=== PATIENT | male | born 1950 | race Caucasian/White ===

== ENCOUNTER 2017-03-08 14:58 | Emergency (ER) | payer MEDICARE, OTHER ==
[2017-03-08 15:08] VITALS: BP 175/100
--- NOTE | 2017-03-08 15:17 | ED Physician Documentation ---
PD HPI DYSPNEA - Stated complaint Stated Complaint: WHEEZING,SUMMERS,SORE THROAT - Chief complaint Chief Complaint: Resp - History obtained from History obtained from: Patient - History of Present Illness Timing - onset: Other (Sick for a week with cough productive of green sputum wheezing and shortness of breath but no fevers. He has a sore throat in the morning, he is a chronic runny nose which isn't really any worse than normal. He is a long-standing smoker and he has a history of coronary disease.) Review of Systems Constitutional: denies: Fever, Chills Ears: denies: Loss of hearing, Ear pain Nose: reports: Rhinorrhea / runny nose. denies: Congestion Throat: reports: Sore throat Cardiac: denies: Chest pain / pressure Respiratory: reports: Dyspnea, Cough GI: denies: Abdominal Pain PD PAST MEDICAL HISTORY - Past Medical History Cardiovascular: None Respiratory: CPAP use Neuro: None Endocrine/Autoimmune: None GI: Colon polyps : Kidney stones HEENT: None Psych: None Musculoskeletal: Osteoporosis Derm: None - Past Surgical History Past Surgical History: Yes General: Hiatal hernia repair HEENT: Rhinoplasty - Present Medications Home Medications: Ambulatory Orders Medication Instructions Recorded Confirmed Hydrochlorothiazide [Microzide] 12.5 mg PO DAILY 06/23/13 11/07/14 [id number] CD [Cardizem Cd] 180 mg PO DAILY 06/23/13 11/07/14 Azithromycin [Zithromax] 250 mg PO DAILY #4 tablet 11/07/14 Hydrocodone/Acetaminophen 1 - 2 tab PO Q6H PRN #14 tablet 11/07/14 [Hydrocodon-Acetaminophen 5-325] guaiFENesin/CODEINE [Robitussin AC] 5 - 10 ml PO Q6H PRN #120 ml 11/07/14 Albuterol Sulfate [Proventil Hfa 1 - 2 puffs IH Q4H PRN #1 03/08/17 Inhaler] hfa.aer.ad Doxycycline Hyclate 100 mg PO BID #14 tablet 03/08/17 guaiFENesin/CODEINE [Robitussin AC] 5 - 10 ml PO Q6H PRN #120 ml 03/08/17 predniSONE [Deltasone] 60 mg PO DAILY 5 Days 03/08/17 - Allergies Allergies/Adverse Reactions: Allergies Allergy/AdvReac Type Severity Reaction Status Date / Time losartan AdvReac Unknown Verified 03/08/17 15:07 - Social History Does the pt smoke?: Yes Smoking Status: Current every day smoker Does the pt drink ETOH?: Yes Does the pt have substance abuse?: No PD ED PE NORMAL - Vitals Vital signs reviewed: Yes - General General: Alert and oriented X 3, No acute distress - HEENT HEENT: Ears normal, Other (sstatus post uvulectomy) - Neck Neck: Supple, no meningeal sign, No bony TTP - Cardiac Cardiac: RRR, No murmur - Respiratory Respiratory: No respiratory distress, Other (mils exp wheezes and bibasilar rhonchi, no focal findings, nonloabored.) - Abdomen Abdomen: Non tender - Derm Derm: No rash - Extremities Extremities: No edema - Neuro Neuro: Alert and oriented X 3, Normal speech - Psych Psych: Normal mood, Normal affect Results - Vitals Vitals: Vital Signs - 24 hr 03/08/17 15:01 Temperature 36 C L Heart Rate 85 Respiratory 20 Rate Blood Pressure 175/100 H O2 Saturation 96 Oxygen O2 Source [Without Activity] Room air O2 Source Room air PD MEDICAL DECISION MAKING - ED course ED course: Given the long-standing tobacco abuse will treat this potential COPD exacerbation given the consistent physical findings. Departure - Departure Disposition: 01 Home, Self Care Clinical Impression: Bronchitis Condition: Good Record reviewed to determine appropriate education?: Yes Instructions: ED Bronchitis Asthmatic Prescriptions: predniSONE [Deltasone] 60 mg PO DAILY 5 Days Doxycycline Hyclate 100 mg PO BID #14 tablet Albuterol Sulfate [Proventil Hfa Inhaler] 1 - 2 puffs IH Q4H PRN #1 hfa.aer.ad PRN Reason: Cough guaiFENesin/CODEINE [Robitussin AC] 5 - 10 ml PO Q6H PRN #120 ml PRN Reason: Cough Comments: Your blood pressure was elevated today on check in to the emergency department. This does not mean that you have hypertension, it is a common phenomenon to check into the emergency department and have elevated blood pressure. I recommend that you see your primary care physician within the week to have it rechecked when you're feeling better.
== END 2017-03-08 15:20 | disposition home or self-care (01) ==
LOC: ED 14:58
DX: J40 Bronchitis, not specified as acute or chronic (principal); R03.0 Elevated blood-pressure reading, without diagnosis of hypertension; Z86.010 Personal history of colon polyps; Z87.442 Personal history of urinary calculi; F17.200 Nicotine dependence, unspecified, uncomplicated
CPT/HCPCS: 99282; 99283

== ENCOUNTER 2017-06-03 10:51 | Outpatient (CLI) | payer MEDICARE, OTHER ==
--- NOTE | 2017-06-04 00:29 | XRAY Report ---
EXAM: LEFT KNEE RADIOGRAPHY EXAM DATE: 06/03/2017 11:19 AM. CLINICAL HISTORY: LEFT KNEE PAIN. Crepitus COMPARISON: None. TECHNIQUE: 3 views. FINDINGS: Bones: Normal. No fractures or bone lesions. Joints: Femoral-tibial joint appears within normal limits. Tiny posterior patellar osteophytes as see n with very minimal patellofemoral degenerative joint disease. No subluxation. No knee joint effusion . Soft Tissues: No acute findings seen. Mild arterial calcifications IMPRESSION: No acute findings. Tiny posterior patellar osteophytes as seen with very minimal patellof emoral degenerative joint disease. [facility] Referring Provider Line: [phone] SITE ID: [id number]
--- NOTE | 2017-06-04 11:26 | XRAY Report ---
EXAM: LEFT HIP AND PELVIS RADIOGRAPHY EXAM DATE: 06/03/2017 03:57 PM. HISTORY: LEFT HIP PAIN. COMPARISONS: CT scan from 06/23/2013. TECHNIQUE: 1 view of the pelvis and 1 view of the hip. FINDINGS: Bones: Normal. No fracture or bone lesion. Joints: Mild degenerative changes noted. Soft Tissues: Normal. No soft tissue swelling. IMPRESSION: Mild osteoarthritic changes without acute fracture. [facility] Referring Provider Line: [phone] SITE ID: [id number]
== END 2017-06-03 10:52 | disposition home or self-care (01) ==
LOC: DI.S 10:51
PROVIDERS: ATTEND Family Medicine
DX: M16.12 Unilateral primary osteoarthritis, left hip (principal); M25.762 Osteophyte, left knee

== ENCOUNTER 2018-02-20 15:40 | Emergency (ER) | payer MEDICARE, OTHER ==
--- NOTE | 2018-02-20 17:01 | XRAY Preliminary Report ---
Exam: XR CHEST 2 VIEW X-RAY IMPRESSION: 1. Retrocardiac opacities suggestive of infiltrates or atelectasis. Given the symptoms, fever and inf iltrates. 2. No effusions or pneumothorax. [facility] SITE ID: [id number]
--- NOTE | 2018-02-20 17:06 | XRAY Report ---
EXAM: CHEST RADIOGRAPHY EXAM DATE: 02/20/2018 04:42 PM. CLINICAL HISTORY: Cough, fever. COMPARISON: 11/07/2014. TECHNIQUE: 2 views. FINDINGS: Lungs/Pleura: Patchy left lower lobe opacities best seen on the frontal radiograph. No large effusion s or pneumothorax. Mediastinum: Stable cardiac silhouette. Other: Diffuse degenerative disk disease throughout the thoracic spine. Mild anterior wedging in the mid thoracic levels consistent with a chronic compression fracture. IMPRESSION: 1. Retrocardiac opacities suggestive of infiltrates or atelectasis. Given the symptoms, favor infiltr ates. 2. No effusions or pneumothorax. [facility] Referring Provider Line: [phone] SITE ID: [id number]
[2018-02-20] MEDS ORDERED: ALBUTEROL NEB 2.5 MG/3 ML INH STA (17:18)
--- NOTE | 2018-02-20 17:18 | ED Physician Documentation ---
PD HPI URI - Stated complaint Stated Complaint: COUGH,CONGESTION - Chief complaint Chief Complaint: Heent - History obtained from History obtained from: Patient - History of Present Illness Timing - onset: How many weeks ago (2) Timing duration: Weeks (2) Timing details: Gradual onset Pain level max: 0 Pain level now: 0 Associated symptoms: Nasal congestion, Rhinorrhea, Dry cough. No: Fever, Chills , Sore throat, Hemoptysis, Chest pain, Dyspnea Contributing factors: Sick contact Improves by: Rest Worsened by: Activity, Breathing Similar symptoms before: Diagnosis (states has had bronchitis before) Recently seen: Not recently seen Review of Systems Ten Systems: 10 systems reviewed and negative Constitutional: denies: Fever, Chills Ears: denies: Ear pain Nose: denies: Rhinorrhea / runny nose, Congestion Throat: denies: Sore throat Cardiac: denies: Chest pain / pressure Respiratory: reports: Dyspnea, Cough GI: denies: Abdominal Pain, Nausea, Vomiting, Diarrhea, Hematemesis : denies: Dysuria Skin: denies: Rash Musculoskeletal: denies: Neck pain, Back pain Neurologic: denies: Headache PD PAST MEDICAL HISTORY - Past Medical History Cardiovascular: None Respiratory: CPAP use Neuro: None Endocrine/Autoimmune: None GI: Colon polyps : Kidney stones HEENT: None Psych: None Musculoskeletal: Osteoporosis Derm: None - Past Surgical History Past Surgical History: Yes General: Hiatal hernia repair HEENT: Rhinoplasty - Present Medications Home Medications: Ambulatory Orders Medication Instructions Recorded Confirmed Hydrochlorothiazide [Microzide] 12.5 mg PO DAILY 06/23/13 11/07/14 diltiaZEM CD [Cardizem Cd] 180 mg PO DAILY 06/23/13 11/07/14 Azithromycin [Zithromax] 250 mg PO DAILY #4 tablet 11/07/14 Hydrocodone/Acetaminophen 1 - 2 tab PO Q6H PRN #14 tablet 11/07/14 [Hydrocodon-Acetaminophen 5-325] guaiFENesin/CODEINE [Robitussin AC] 5 - 10 ml PO Q6H PRN #120 ml 11/07/14 Albuterol Sulfate [Proventil Hfa 1 - 2 puffs IH Q4H PRN #1 03/08/17 Inhaler] hfa.aer.ad Doxycycline Hyclate 100 mg PO BID #14 tablet 03/08/17 guaiFENesin/CODEINE [Robitussin AC] 5 - 10 ml PO Q6H PRN #120 ml 03/08/17 predniSONE [Deltasone] 60 mg PO DAILY 5 Days tablet 03/08/17 Albuterol Sulf [Ventolin Hfa 1 - 2 puffs INH Q4HR PRN #1 inhaler 02/20/18 Inhaler] Allopurinol 02/20/18 Aspirin 02/20/18 Azithromycin [Zithromax] 0 mg PO DAILY #6 tablet 02/20/18 Clopidogrel [Plavix] 02/20/18 Gabapentin 02/20/18 Nitroglycerin [Nitrostat] 02/20/18 Pantoprazole [Protonix] 02/20/18 Sod/Pot/K Cit/Sod Cit/Cit Acid 02/20/18 [Potass Cit-Sod Cit-Citric Soln] Tamsulosin [Flomax] 02/20/18 hydroCHLOROthiazide 02/20/18 [Hydrochlorothiazide] traMADol [Ultram] 02/20/18 - Allergies Allergies/Adverse Reactions: Allergies Allergy/AdvReac Type Severity Reaction Status Date / Time losartan AdvReac Unknown Verified 03/08/17 15:07 - Social History Does the pt smoke?: Yes Smoking Status: Current every day smoker Does the pt drink ETOH?: Yes Does the pt have substance abuse?: No PD ED PE NORMAL - Vitals Vital signs reviewed: Yes - General General: Alert and oriented X 3 - HEENT HEENT: Moist mucous membranes - Neck Neck: Supple, no meningeal sign - Cardiac Cardiac: RRR, Strong equal pulses - Respiratory Respiratory: No respiratory distress, Other (wheezing B, dimished BS bilaterally.) - Abdomen Abdomen: Soft, Non tender - Derm Derm: Warm and dry, No rash - Neuro Neuro: Alert and oriented X 3 - Psych Psych: Normal mood, Normal affect Results - Vitals Vitals: Vital Signs - 24 hr 02/20/18 02/20/18 02/20/18 15:51 17:38 17:49 Temperature 37.1 C 36.6 C Heart Rate 90 73 70 Respiratory 18 18 18 Rate Blood Pressure 170/109 H 170/98 H O2 Saturation 98 96 Oxygen O2 Source [] Room air O2 Source Room air - Rads (name of study) cxr Radiology: Prelim report reviewed, EMP read contemporaneously, See rad report ( Retrocardiac opacity suggestive of infiltrates or atelectasis. Given symptoms favor infiltrates. No effusions or pneumothorax.) PD MEDICAL DECISION MAKING - ED course Complexity details: reviewed results, re-evaluated patient, considered differential, d/w patient ED course: Patient is a 67-year-old male who presents to the emergency department with pneumonia on chest x-ray. Feels better after albuterol treatment and will place on inhaler for home. We will also prescribe antibiotics. He is well- appearing, nontoxic. No hypoxia or respiratory distress. Patient counseled regarding signs and symptoms for which I believe and urgent re-evaluation would be necessary. Patient with good understanding of and agreement to plan and is comfortable going home at this time This document was made in part using voice recognition software. While efforts are made to proofread this document, sound alike and grammatical errors may occur. Departure - Departure Disposition: 01 Home, Self Care Clinical Impression: Pneumonia Qualifiers: Pneumonia type: due to unspecified organism Laterality: bilateral Lung location : unspecified part of lung Qualified Code(s): J18.9 - Pneumonia, unspecified organism Condition: Good Instructions: ED Pneumonia Adult Follow-Up: Sean Blankenship MD [Primary Care Provider] - Within 1 week Prescriptions: Albuterol Sulf [Ventolin Hfa Inhaler] 1 - 2 puffs INH Q4HR PRN #1 inhaler PRN Reason: Shortness Of Air/Wheezing Azithromycin [Zithromax] 0 mg PO DAILY #6 tablet Comments: Take all antibiotics until gone. Return if you worsen. This should improve over the next few days. Discharge Date/Time: 02/20/18 18:03
[2018-02-20 17:50] VITALS: BP 170/98
== END 2018-02-20 18:03 | disposition home or self-care (01) ==
LOC: ED 15:40
DX: J18.9 Pneumonia, unspecified organism (principal); F17.200 Nicotine dependence, unspecified, uncomplicated
CPT/HCPCS: 71046; 94640; 94664; 99283; 99284

== ENCOUNTER 2018-05-01 18:57 | Emergency (ER) | payer MEDICARE, OTHER ==
[2018-05-01 19:43] LABS: BASOPHILS # (AUTO) 0.1 10^3/uL (0.0-0.1); BASOPHILS % (AUTO) 0.9 %; EOSINOPHILS # (AUTO) 0.2 10^3/uL (0.0-0.7); EOSINOPHILS % (AUTO) 2.2 %; HGB - HEMOGLOBIN 17.4 g/dL (14.0-18.0); LYMPHOCYTES # (AUTO) 1.9 10^3/uL (1.5-3.5); LYMPHOCYTES % (AUTO) 24.1 %; MEAN CORPUSCULAR HEMOGLOBIN 30.4 pg (27.0-31.0); MEAN CORPUSCULAR HGB CONC 33.1 g/dL (32.0-36.0); MEAN CORPUSCULAR VOLUME 91.9 fL (80.0-94.0); MONOCYTES # (AUTO) 0.6 10^3/uL (0.0-1.0); MONOCYTES % (AUTO) 7.9 %; NEUTROPHILS # (AUTO) 5.2 10^3/uL (1.5-6.6); NEUTROPHILS % (AUTO) 64.9 %; PLT - PLATELET COUNT 199 10^3/uL (130-450); RED BLOOD COUNT 5.72 10^6/uL (4.70-6.10); RED CELL DISTRIBUTION WIDTH 14.4 % (12.0-15.0)
[2018-05-01] MEDS ORDERED: SODIUM CHLORIDE 0.9% 1,000 ML IV ONE (19:49)
[2018-05-01] MEDS ORDERED: MORPHINE 10 MG/ML VIAL IVP STA (19:49)
[2018-05-01] MEDS ORDERED: diphenhydrAMINE INJ 50 MG/ML VIAL IVP STA (19:49)
[2018-05-01] MEDS ORDERED: METOCLOPRAMIDE 10 MG/2 ML VIAL IVP STA (19:49)
[2018-05-01 19:56] LABS: ALBUMIN 4.3 g/dL (3.2-5.5); ALBUMIN/GLOBULIN RATIO 1.2 (1.0-2.2); BILIRUBIN,TOTAL 0.8 mg/dL (0.2-1.0); CALCIUM 9.9 mg/dL (8.5-10.3); CREATININE 0.9 mg/dL (0.6-1.2); TOTAL PROTEIN 7.9 g/dL (6.7-8.2)
--- NOTE | 2018-05-01 20:17 | XRAY Report ---
Procedure Date: 05/01/2018 Accession Number: [id number] / [id number] Procedure: XR - Chest 2 View X-Ray CPT Code: 30153 FULL RESULT: EXAM: CHEST RADIOGRAPHY EXAM DATE: 05/01/2018 07:58 PM. CLINICAL HISTORY: Shortness of breath. COMPARISON: Chest radiograph 02/20/2018 and 11/07/2014. TECHNIQUE: 2 views. FINDINGS: Lungs/Pleura: There are streaky left basilar opacities, similar to prior radiographs, likely atelectasis or scarring. No pleural effusion or pneumothorax. Lungs are otherwise clear. Pulmonary vasculature is within normal limits. Mediastinum: Heart and mediastinal contours are unchanged. Other: Degenerative disk disease again noted throughout the thoracic spine, [id number], with multilevel anterior wedging causing accentuated kyphosis as before. IMPRESSION: No acute cardiopulmonary abnormality with retrocardiac opacity stable compared to prior exams likely representing scarring or atelectasis. [facility]
--- NOTE | 2018-05-01 21:39 | ED Physician Documentation ---
History of Present Illness - Stated complaint Stated Complaint: SOA/HD PX - Chief complaint Chief Complaint: Neuro - History obtained from History obtained from: Patient, Family - History of Present Illness Timing: How many days ago (3) - Additonal information Additional information: Patient is a 67 year old male presenting to the emergency department for headache and intermittent shortness of breath. Patient states that for the last three days he has had a dull frontal headache. it is made worse by light. patient also reports shortness of breath. he states that it mainly is when he lies down. Patient denies any exertional component and denies any chest pain. Review of Systems Constitutional: denies: Fever, Chills Eyes: reports: Reviewed and negative Ears: reports: Reviewed and negative Nose: reports: Rhinorrhea / runny nose, Congestion Throat: reports: Reviewed and negative Cardiac: denies: Chest pain / pressure, Palpitations, Calf pain Respiratory: reports: Dyspnea. denies: Cough, Hemoptysis, Wheezing GI: denies: Nausea, Vomiting Neurologic: reports: Headache. denies: Difficulty speaking, Syncope, Altered mental status, Head injury, LOC Immunocompromised: denies: Immunocompromised PD PAST MEDICAL HISTORY - Past Medical History Cardiovascular: None Respiratory: CPAP use Endocrine/Autoimmune: None GI: Colon polyps : Kidney stones HEENT: None Psych: None Musculoskeletal: Osteoporosis Derm: None - Past Surgical History Past Surgical History: Yes General: Hiatal hernia repair HEENT: Rhinoplasty - Present Medications Home Medications: Ambulatory Orders Medication Instructions Recorded Confirmed Hydrochlorothiazide [Microzide] 12.5 mg PO DAILY 06/23/13 11/07/14 diltiaZEM CD [Cardizem Cd] 180 mg PO DAILY 06/23/13 11/07/14 Azithromycin [Zithromax] 250 mg PO DAILY #4 tablet 11/07/14 Hydrocodone/Acetaminophen 1 - 2 tab PO Q6H PRN #14 tablet 11/07/14 [Hydrocodon-Acetaminophen 5-325] guaiFENesin/CODEINE [Robitussin AC] 5 - 10 ml PO Q6H PRN #120 ml 11/07/14 Albuterol Sulfate [Proventil Hfa 1 - 2 puffs IH Q4H PRN #1 03/08/17 Inhaler] hfa.aer.ad Doxycycline Hyclate 100 mg PO BID #14 tablet 03/08/17 guaiFENesin/CODEINE [Robitussin AC] 5 - 10 ml PO Q6H PRN #120 ml 03/08/17 predniSONE [Deltasone] 60 mg PO DAILY 5 Days tablet 03/08/17 Albuterol Sulf [Ventolin Hfa 1 - 2 puffs INH Q4HR PRN #1 inhaler 02/20/18 Inhaler] Allopurinol 02/20/18 Aspirin 02/20/18 Azithromycin [Zithromax] 0 mg PO DAILY #6 tablet 02/20/18 Clopidogrel [Plavix] 02/20/18 Gabapentin 02/20/18 Nitroglycerin [Nitrostat] 02/20/18 Pantoprazole [Protonix] 02/20/18 Sod/Pot/K Cit/Sod Cit/Cit Acid 02/20/18 [Potass Cit-Sod Cit-Citric Soln] Tamsulosin [Flomax] 02/20/18 hydroCHLOROthiazide 02/20/18 [Hydrochlorothiazide] traMADol [Ultram] 02/20/18 - Allergies Allergies/Adverse Reactions: Allergies Allergy/AdvReac Type Severity Reaction Status Date / Time losartan AdvReac Unknown Verified 05/01/18 19:06 - Social History Does the pt smoke?: Yes Smoking Status: Current every day smoker Does the pt drink ETOH?: Yes Does the pt have substance abuse?: No PD ED PE NORMAL - Vitals Vital signs reviewed: Yes - General General: Alert and oriented X 3 - HEENT HEENT: Atraumatic - Neck Neck: No JVD - Cardiac Cardiac: RRR, No murmur - Respiratory Respiratory: Clear bilaterally - Abdomen Abdomen: Soft, Non tender, Non distended - Derm Derm: Normal color, Warm and dry, No rash - Extremities Extremities: No edema, No calf tenderness / cord - Neuro Neuro: Alert and oriented X 3, No motor deficit, Normal speech Eye Opening: Spontaneous Results - Vitals Vitals: Vital Signs - 24 hr 05/01/18 05/01/18 05/01/18 19:02 20:33 22:03 Temperature 36 C L Heart Rate 75 64 74 Respiratory 18 16 18 Rate Blood Pressure 154/117 H 211/106 H 213/103 H O2 Saturation 99 98 97 Oxygen O2 Source [Without Activity] Room air O2 Source Room air - EKG (time done) 1914 Rate: Rate (enter#) (67) [place]: Normal Ischemia: Q waves - Labs Labs: Laboratory Tests 05/01/18 05/01/18 05/01/18 19:40 19:40 19:40 WBC 8.0 RBC 5.72 Hgb 17.4 Hct 52.6 H MCV 91.9 MCH 30.4 MCHC 33.1 RDW 14.4 Plt Count 199 MPV 9.0 Neut # (Auto) 5.2 Lymph # (Auto) 1.9 [place] # (Auto) 0.6 Eos # (Auto) 0.2 Baso # (Auto) 0.1 Absolute Nucleated RBC 0.01 Nucleated RBC % 0.1 Sodium 134 L Potassium 3.8 Chloride 96 L Carbon Dioxide 31 Anion Gap 7.0 BUN 14 Creatinine 0.9 Estimated GFR (MDRD) 84 L Glucose 185 H Calcium 9.9 Total Bilirubin 0.8 AST 30 ALT 46 Alkaline Phosphatase 111 Troponin I < 0.04 B-Natriuretic Peptide Total Protein 7.9 Albumin 4.3 Globulin 3.6 Albumin/Globulin Ratio 1.2 Lipase 35 05/01/18 19:40 WBC RBC Hgb Hct MCV MCH MCHC RDW Plt Count MPV Neut # (Auto) Lymph # (Auto) [place] # (Auto) Eos # (Auto) Baso # (Auto) Absolute Nucleated RBC Nucleated RBC % Sodium Potassium Chloride Carbon Dioxide Anion Gap BUN Creatinine Estimated GFR (MDRD) Glucose Calcium Total Bilirubin AST ALT Alkaline Phosphatase Troponin I B-Natriuretic Peptide 117 H Total Protein Albumin Globulin Albumin/Globulin Ratio Lipase - Rads (name of study) chest x-ray Radiology: Final report received (scarring, no acute changes) PD MEDICAL DECISION MAKING - ED course Complexity details: reviewed old records, reviewed results, re-evaluated patient , considered differential, d/w patient ED course: Patient was seen and examined at bedside. IV access was gained and labs were drawn. ekg was performed and showed q waves in the inferior leads but no acute ischemic changes. chest x-ray was ordered. Patient was treated with a fluid bolus, reglan, benadryl and morphine. Patient's blood work was relatively unremarkable and there was no sign of fluid overload. patient's headache resolved. patient required no further work up and was stable for discharge with outpatient follow up. - Sepsis Event Vital Signs: Vital Signs - 24 hr 05/01/18 05/01/18 05/01/18 19:02 20:33 22:03 Temperature 36 C L Heart Rate 75 64 74 Respiratory 18 16 18 Rate Blood Pressure 154/117 H 211/106 H 213/103 H O2 Saturation 99 98 97 Oxygen O2 Source [Without Activity] Room air O2 Source Room air Departure - Departure Disposition: 01 Home, Self Care Clinical Impression: Headache Condition: Good Instructions: ED Headache Migraine Follow-Up: Sean Blankenship MD [Primary Care Provider] - Tomorrow Comments: Your diagnostics today were within normal limits. there is are no acute abnormalities. that being said it is important that you contact your doctor tomorrow to schedule a follow up ultrasound (echocardiogram). You should return to the emergency department at any time for new, worsening or uncontrollable symptoms.
[2018-05-01 22:05] VITALS: BP 213/103
== END 2018-05-01 22:04 | disposition home or self-care (01) ==
LOC: ED 18:57
DX: R51 Headache (principal)
CPT/HCPCS: 36415; 71046; 80053; 83690; 83880; 84484; 85025; 93005; 96361; 96374; 96375; 99283; 99284; J1200; J2765

== ENCOUNTER 2018-05-03 07:17 | Emergency (ER) | payer MEDICARE, OTHER ==
--- NOTE | 2018-05-03 07:45 | ED Physician Documentation ---
PD HPI HEADACHE - Stated complaint Stated Complaint: NAUSEA/SOA/HEAD PAIN - Chief complaint Chief Complaint: General - History obtained from History obtained from: Patient - History of Present Illness Timing - onset: How many days ago (5) Timing - onset during: Rest Timing - duration: Days (5) Timing - details: Gradual onset, Still present Worst headache ever?: No: Worst headache ever? Location: Right Quality: Throbbing Associated symptoms: Nausea, Vomiting, Other (shortness of breath). No: Fever, Stiff neck Improved by: Rest, Dark room, Quiet, Meds Worsened by: Light, Noise, Moving Contributing factors: Anticoagulated (on plavix) Similar symptoms before: No diagnosis Recently seen: Emergency Dept - Additional information Additional information: 67 y/o male with a history of htn has developed a headache & cough. He is noted to be hypertensive today and he was in the ED 2 nights ago with this headache and improved with migraine treatment but the relief was short lived. He does have a history of sinus disease. Review of Systems Constitutional: denies: Fever, Chills Eyes: denies: Decreased vision Ears: denies: Ear pain Nose: reports: Rhinorrhea / runny nose, Congestion, Sinus pressure / pain Throat: denies: Sore throat Cardiac: denies: Chest pain / pressure, Palpitations Respiratory: reports: Cough. denies: Dyspnea GI: reports: Nausea, Vomiting. denies: Abdominal Pain, Constipation, Diarrhea : denies: Dysuria, Frequency PD PAST MEDICAL HISTORY - Past Medical History Cardiovascular: Hypertension, [place] Respiratory: COPD, Pneumonia, CPAP use Neuro: CVA Endocrine/Autoimmune: None GI: Colon polyps : Kidney stones HEENT: None Psych: None Musculoskeletal: Osteoporosis Derm: None - Past Surgical History Past Surgical History: Yes General: Hiatal hernia repair HEENT: Rhinoplasty - Present Medications Home Medications: Ambulatory Orders Medication Instructions Recorded Confirmed Hydrochlorothiazide [Microzide] 12.5 mg PO DAILY 06/23/13 11/07/14 diltiaZEM CD [Cardizem Cd] 180 mg PO DAILY 06/23/13 11/07/14 Hydrocodone/Acetaminophen 1 - 2 tab PO Q6H PRN #14 tablet 11/07/14 [Hydrocodon-Acetaminophen 5-325] guaiFENesin/CODEINE [Robitussin AC] 5 - 10 ml PO Q6H PRN #120 ml 11/07/14 guaiFENesin/CODEINE [Robitussin AC] 5 - 10 ml PO Q6H PRN #120 ml 03/08/17 predniSONE [Deltasone] 60 mg PO DAILY 5 Days tablet 03/08/17 Allopurinol 02/20/18 Aspirin 02/20/18 Clopidogrel [Plavix] 02/20/18 Gabapentin 02/20/18 Nitroglycerin [Nitrostat] 02/20/18 Pantoprazole [Protonix] 02/20/18 Sod/Pot/K Cit/Sod Cit/Cit Acid 02/20/18 [Potass Cit-Sod Cit-Citric Soln] Tamsulosin [Flomax] 02/20/18 hydroCHLOROthiazide 02/20/18 [Hydrochlorothiazide] traMADol [Ultram] 02/20/18 Amox/Clav 875/125 [Augmentin] 1 each PO Q12H #20 tablet 05/03/18 - Allergies Allergies/Adverse Reactions: Allergies Allergy/AdvReac Type Severity Reaction Status Date / Time losartan AdvReac Unknown Verified 05/03/18 07:38 - Social History Does the pt smoke?: Yes Smoking Status: Current every day smoker Does the pt drink ETOH?: Yes Does the pt have substance abuse?: No PD ED PE NORMAL - Vitals Vital signs reviewed: Yes (hypertension marked) - General General: Alert and oriented X 3, Well developed/nourished - HEENT HEENT: Atraumatic, PERRL, EOMI, Other (bothTM's are inflamed along the umbo with the left more involved than the right. ) - Neck Neck: Supple, no meningeal sign, No bony TTP - Cardiac Cardiac: RRR, No murmur - Respiratory Respiratory: No respiratory distress, Clear bilaterally - Abdomen Abdomen: Soft, Non tender - Back Back: No CVA TTP, No spinal TTP - Derm Derm: Normal color, Warm and dry, No rash - Extremities Extremities: No deformity, No edema - Neuro Neuro: Alert and oriented X 3, No motor deficit, No sensory deficit, Normal speech Eye Opening: Spontaneous Motor: Obeys Commands Verbal: Oriented GCS Score: 15 - Psych Psych: Normal mood, Normal affect Results - Vitals Vitals: Vital Signs - 24 hr 05/03/18 05/03/18 05/03/18 07:34 07:44 08:31 Temperature 36.1 C L Heart Rate 95 93 93 Respiratory 15 20 18 Rate Blood Pressure 177/138 H 174/89 H 156/111 H O2 Saturation 98 98 97 05/03/18 05/03/18 05/03/18 09:14 11:41 13:19 Temperature Heart Rate 82 86 87 Respiratory 14 20 19 Rate Blood Pressure 185/95 H 165/125 H 194/83 H O2 Saturation 95 95 96 Oxygen O2 Source [] Room air O2 Source Nasal cannula - EKG (time done) 0759 Rate: Rate (enter#) (92) Rhythm: LAE, Other (ventricular trigeminy) Intervals: Prolonged QT QRS: Poor R wave progression Ischemia: Q waves Compare to prior EKG: Changed from prior EKG (SPT 05-01-18 rate has increased, QT interval has prolonged, trigeminy has developed. ) Computer interpretation: Agree with computer - Labs Labs: Laboratory Tests 05/03/18 05/03/18 05/03/18 07:55 07:55 07:55 WBC 15.7 H RBC 6.31 H Hgb 19.1 H Hct 56.9 H MCV 90.2 MCH 30.3 MCHC 33.6 RDW 14.2 Plt Count 219 MPV 9.0 Neut # (Auto) 12.2 H Lymph # (Auto) 2.0 [place] # (Auto) 1.4 H Eos # (Auto) 0.0 Baso # (Auto) 0.1 Absolute Nucleated RBC 0.01 Nucleated RBC % 0.0 Sodium 134 L Potassium 3.9 Chloride 94 L Carbon Dioxide 24 Anion Gap 16.0 H BUN 17 Creatinine 1.3 H Estimated GFR (MDRD) 55 L Glucose 218 H Calcium 10.9 H Magnesium Total Bilirubin 1.3 H AST 30 ALT 41 Alkaline Phosphatase 116 Troponin I 0.05 B-Natriuretic Peptide Total Protein 8.6 H Albumin 4.3 Globulin 4.3 H Albumin/Globulin Ratio 1.0 Lipase 32 05/03/18 05/03/18 05/03/18 07:55 07:55 11:31 WBC RBC Hgb Hct MCV MCH MCHC RDW Plt Count MPV Neut # (Auto) Lymph # (Auto) [place] # (Auto) Eos # (Auto) Baso # (Auto) Absolute Nucleated RBC Nucleated RBC % Sodium Potassium Chloride Carbon Dioxide Anion Gap BUN Creatinine Estimated GFR (MDRD) Glucose Calcium Magnesium 1.7 Total Bilirubin AST ALT Alkaline Phosphatase Troponin I 0.05 B-Natriuretic Peptide 241 H Total Protein Albumin Globulin Albumin/Globulin Ratio Lipase - Rads (name of study) CT head without Radiology: Prelim report reviewed (Impression: 1. Generalized age-related cortical atrophic changes without evidence of acute intracranial abnormality. 2. Moderate paranasal sinus disease, although the severity has decreased compared to 2014. However no significant change from prior.), EMP read indepedently, See rad report 2 veiw chest Radiology: Prelim report reviewed (Impression: Normal two-view chest radiography.), EMP read indepedently, See rad report Procedures - IVC sono (time) 0740 Bedside IVC sono: IVC measures (cm) (1.34), IVC collapsed c insp (cm) (complete) , Dehydration (est 1liter deficit) PD MEDICAL DECISION MAKING - ED course Complexity details: reviewed old records, reviewed results, re-evaluated patient , considered differential, d/w patient ED course: 67-year-old male with a history of COPD and hypertension has presented to the emergency department with headache and shortness of breath with acknowledged marked hypertension with diastolic of 138. He has 9 out of 10 pain for a headache and he has had symptoms for 5 days. Here in the emergency department an IV is established he is administered saline, dexamethasone, Compazine, Benadryl, Toradol, and Rocephin IV. On examination today he does have otitis bilaterally he does not have specific symptoms related to that. His lungs do not sound like he has wheezes. He appears to be moving air easily. He has no signs of failure. On interrogation the inferior vena cava he does appear to have about 1 L deficit. He is treated for migraine headache and otitis and his head is scanned. He has improvement and then resolution of his headache. His blood pressure is concerning and a replacement cuff shows improved but still elevated values and he is given clonidine 0.1mg PO - Sepsis Event Vital Signs: Vital Signs - 24 hr 05/03/18 05/03/18 05/03/18 07:34 07:44 08:31 Temperature 36.1 C L Heart Rate 95 93 93 Respiratory 15 20 18 Rate Blood Pressure 177/138 H 174/89 H 156/111 H O2 Saturation 98 98 97 05/03/18 05/03/18 05/03/18 09:14 11:41 13:19 Temperature Heart Rate 82 86 87 Respiratory 14 20 19 Rate Blood Pressure 185/95 H 165/125 H 194/83 H O2 Saturation 95 95 96 Oxygen O2 Source [] Room air O2 Source Nasal cannula Departure - Departure Disposition: 01 Home, Self Care Clinical Impression: Headache Qualifiers: Headache type: tension-type Headache chronicity pattern: acute headache Intractability: not intractable Qualified Code(s): G44.209 - Tension-type headache, unspecified, not intractable Otitis media Qualifiers: Otitis media type: suppurative Chronicity: acute Laterality: bilateral Recurrence: not specified as recurrent Spontaneous tympanic membrane rupture: without spontaneous rupture Qualified Code(s): H66.003 - Acute suppurative otitis media without spontaneous rupture of ear drum, bilateral Acute frontal sinusitis Qualifiers: Recurrence: non-recurrent Qualified Code(s): J01.10 - Acute frontal sinusitis, unspecified Hypertension Qualifiers: Hypertension type: essential hypertension Qualified Code(s): I10 - Essential ( primary) hypertension Instructions: ED Headache Tension, ED Otitis Media Acute Adult, ED Sinusitis Abx Tx Follow-Up: Sean Blankenship MD [Primary Care Provider] - Prescriptions: Amox/Clav 875/125 [Augmentin] 1 each PO Q12H #20 tablet Discharge Date/Time: 05/03/18 13:57
[2018-05-03] MEDS ORDERED: KETOROLAC 60 MG/2 ML VIAL IVP STA (07:52)
[2018-05-03] MEDS ORDERED: diphenhydrAMINE INJ 50 MG/ML VIAL IVP STA (07:52)
[2018-05-03] MEDS ORDERED: DEXAMETHASONE 10 MG/ML VIAL IV STA (07:52)
[2018-05-03] MEDS ORDERED: SODIUM CHLORIDE 0.9% 1,000 ML IV ONE (07:52)
[2018-05-03] MEDS ORDERED: cefTRIAXone 1 GM in SODIUM CHLORIDE 0.9% MINIBAG 100 ML IV STA (07:52)
[2018-05-03] MEDS ORDERED: PROCHLORPERAZINE 10 MG/2 ML VIAL IVP STA (07:53)
[2018-05-03 08:02] LABS: BASOPHILS # (AUTO) 0.1 10^3/uL (0.0-0.1); BASOPHILS % (AUTO) 0.8 %; EOSINOPHILS % (AUTO) 0.2 %; HGB - HEMOGLOBIN 19.1 g/dL (14.0-18.0); LYMPHOCYTES % (AUTO) 12.8 %; MEAN CORPUSCULAR HEMOGLOBIN 30.3 pg (27.0-31.0); MEAN CORPUSCULAR HGB CONC 33.6 g/dL (32.0-36.0); MEAN CORPUSCULAR VOLUME 90.2 fL (80.0-94.0); MONOCYTES # (AUTO) 1.4 10^3/uL (0.0-1.0); MONOCYTES % (AUTO) 8.6 %; NEUTROPHILS # (AUTO) 12.2 10^3/uL (1.5-6.6); NEUTROPHILS % (AUTO) 77.6 %; PLT - PLATELET COUNT 219 10^3/uL (130-450); RED BLOOD COUNT 6.31 10^6/uL (4.70-6.10); RED CELL DISTRIBUTION WIDTH 14.2 % (12.0-15.0); WHITE BLOOD COUNT 15.7 x10^3/uL (4.8-10.8)
[2018-05-03 08:17] LABS: ALBUMIN 4.3 g/dL (3.2-5.5); BILIRUBIN,TOTAL 1.3 mg/dL (0.2-1.0); CALCIUM 10.9 mg/dL (8.5-10.3); CREATININE 1.3 mg/dL (0.6-1.2); TOTAL PROTEIN 8.6 g/dL (6.7-8.2)
--- NOTE | 2018-05-03 08:40 | CT Report ---
Procedure Date: 05/03/2018 Accession Number: [id number] / [id number] Procedure: CT - Head W/O CPT Code: FULL RESULT: EXAM: CT HEAD EXAM DATE: 05/03/2018 08:23 AM. CLINICAL HISTORY: Right sided headache. COMPARISON: HEAD W/O 01/29/2014. TECHNIQUE: Multiaxial CT images were obtained from the foramen magnum to the vertex. Reformats: Coronal. IV contrast: None. In accordance with CT protocol optimization, one or more of the following dose reduction techniques were utilized for this exam: automated exposure control, adjustment of mA and/or KV based on patient size, or use of iterative reconstructive technique. FINDINGS: Parenchyma: No intraparenchymal hemorrhage. No evidence of mass, midline shift, or CT findings of acute infarction. Rebollar-white differentiation is distinct. Diffuse chronic microangiopathic white matter changes are evident. Extraaxial Spaces: Normal for age. No subdural or epidural collections identified. Ventricles: The ventricles and cortical sulci are enlarged, consistent with age-related tissue loss. Sinuses and orbits: Improved aeration of the paranasal sinuses compared to prior, however there is persistent complete opacification of the left frontal sinus, and partial opacification of the anterior ethmoid sinuses and right maxillary sinus. No air-fluid levels demonstrated. The mastoid air cells are clear. Bones: No evidence of fracture or calvarial defect. Other: None. IMPRESSION: 1. Generalized age-related cortical atrophic changes without evidence of acute intracranial abnormality. 2. Moderate paranasal sinus disease, though the severity has decreased compared to 2013. Otherwise, no significant change from prior. [facility]
[2018-05-03] MEDS ORDERED: MAGNESIUM SULFATE 2 GRAM 2 GM/50 ML BAG IV ONE (08:51)
--- NOTE | 2018-05-03 09:09 | XRAY Report ---
Procedure Date: 05/03/2018 Accession Number: [id number] / [id number] Procedure: XR - Chest 2 View X-Ray CPT Code: 61216 FULL RESULT: EXAM: CHEST RADIOGRAPHY EXAM DATE: 05/03/2018 08:30 AM. CLINICAL HISTORY: Shortness of breath. COMPARISON: 05/01/18. TECHNIQUE: 2 views. FINDINGS: Lungs/Pleura: No focal opacities evident. Previous minor opacification of the retrocardiac region is not well seen on current study and likely represents resolved atelectasis. No pleural effusion. No pneumothorax. Normal volumes. Mediastinum: Heart and mediastinal contours are unremarkable. Other: None. IMPRESSION: Normal 2-view chest radiography. RAD[facility]
[2018-05-03] MEDS ORDERED: cloNIDine 0.1 MG TABLET PO STA (13:10)
[2018-05-03 13:21] VITALS: BP 194/83
== END 2018-05-03 13:57 | disposition home or self-care (01) ==
LOC: ED 07:17
DX: G44.209 Tension-type headache, unspecified, not intractable (principal); H66.003 Acute suppurative otitis media without spontaneous rupture of ear drum, bilateral; J01.10 Acute frontal sinusitis, unspecified; I10 Essential (primary) hypertension; J44.9 Chronic obstructive pulmonary disease, unspecified
CPT/HCPCS: 36415; 70450; 71046; 80053; 83690; 83735; 83880; 84484; 85025; 93005; 96365; 96367; 96375; 99283; 99284; A9270; J1200

== ENCOUNTER 2018-07-11 18:00 | Outpatient (CLI) | payer MEDICARE, OTHER | END 2018-07-11 18:01 | disposition critical access hospital (66) | LOC: EMS 18:00 | PROVIDERS: ATTEND Surgery | DX: R10.9 Unspecified abdominal pain (principal); R11.2 Nausea with vomiting, unspecified | CPT/HCPCS: A0425; A0427 ==

== ENCOUNTER 2018-07-11 18:40 | Emergency (ER) | payer MEDICARE, OTHER ==
[2018-07-11] MEDS ORDERED: ONDANSETRON 4 MG/2 ML VIAL IVP STA (18:58)
[2018-07-11] MEDS ORDERED: HYDROmorphone 1 MG/ML CARPUJECT IVP STA (18:58)
--- NOTE | 2018-07-11 19:39 | CT Report ---
Reason: increasing Left flank pain s/p Lithotripsy today Procedure Date: 07/11/2018 Accession Number: [id number] / [id number] Procedure: CT - Abdomen/Pelvis W/O CPT Code: FULL RESULT: EXAM: CT ABDOMEN AND PELVIS EXAM DATE: 07/11/2018 07:11 PM. CLINICAL HISTORY: Increasing Left flank pain s/p Lithotripsy today. COMPARISONS: ABDOMEN/PELVIS W/O 06/23/2013 7:09 PM. TECHNIQUE: Routine axial helical CT imaging was performed through the abdomen and pelvis without IV contrast. Reconstructions: Coronal and sagittal. In accordance with CT protocol optimization, one or more of the following dose reduction techniques were utilized for this exam: automated exposure control, adjustment of mA and/or KV based on patient size, or use of iterative reconstructive technique. FINDINGS: Lung Bases: Unremarkable. Abdominal Organs: There is hepatic steatosis. The spleen demonstrates no acute abnormalities. The pancreas and adrenal glands are unremarkable. Moderate to large left kidney subcapsular hematoma with mass-effect exerted on the renal parenchyma. There is mild perirenal and retroperitoneal extent of the hematoma. There are small left-sided kidney stones. The right kidney demonstrates no acute abnormalities. Gallbladder/bile ducts: No significant abnormalities. Peritoneal Cavity: No free fluid, free air or alan adenopathy. Bowel is grossly unremarkable. Pelvic Organs: No bladder stones or wall thickening. Noncontrast images of the visualized pelvic organs are unremarkable. Vasculature: Unremarkable. Other: None. IMPRESSION: Moderate to large left kidney subcapsular hematoma with significant mass-effect exerted on the left kidney parenchyma. There is mild perirenal and retroperitoneal extent of the hematoma. Findings of the study discussed with Dr. Burrell at 1920.
[2018-07-11 19:41] LABS: BASOPHILS # (AUTO) 0.1 10^3/uL (0.0-0.1); BASOPHILS % (AUTO) 0.6 %; EOSINOPHILS % (AUTO) 0.1 %; HGB - HEMOGLOBIN 14.7 g/dL (14.0-18.0); LYMPHOCYTES # (AUTO) 1.2 10^3/uL (1.5-3.5); LYMPHOCYTES % (AUTO) 7.3 %; MEAN CORPUSCULAR HEMOGLOBIN 30.3 pg (27.0-31.0); MEAN CORPUSCULAR HGB CONC 33.4 g/dL (32.0-36.0); MEAN CORPUSCULAR VOLUME 90.6 fL (80.0-94.0); MEAN PLATELET VOLUME 8.9 fL (7.4-11.4); MONOCYTES # (AUTO) 0.9 10^3/uL (0.0-1.0); MONOCYTES % (AUTO) 5.4 %; NEUTROPHILS # (AUTO) 14.3 10^3/uL (1.5-6.6); NEUTROPHILS % (AUTO) 86.6 %; PLT - PLATELET COUNT 210 10^3/uL (130-450); RED BLOOD COUNT 4.87 10^6/uL (4.70-6.10); RED CELL DISTRIBUTION WIDTH 14.1 % (12.0-15.0); WHITE BLOOD COUNT 16.5 x10^3/uL (4.8-10.8)
[2018-07-11 19:54] LABS: ALBUMIN 3.6 g/dL (3.2-5.5); ALBUMIN/GLOBULIN RATIO 1.2 (1.0-2.2); BILIRUBIN,TOTAL 1.2 mg/dL (0.2-1.0); CREATININE 1.7 mg/dL (0.6-1.2); TOTAL PROTEIN 6.5 g/dL (6.7-8.2)
[2018-07-11] MEDS ORDERED: SODIUM CHLORIDE 0.9% 1,000 ML IV ONE ×2 (20:35→20:36)
--- NOTE | 2018-07-11 20:45 | ED Physician Documentation ---
History of Present Illness - Stated complaint Stated Complaint: FLANK PAIN, HEMATURIA SP SURGERY - Chief complaint Chief Complaint: Abd Pain - History obtained from History obtained from: Patient - Additonal information Additional information: 68-year-old male presents the emergency department with significant left-sided flank pain and nausea. The patient is status post lithotripsy today at an [facility]. Upon returning home the patient develops significant pain which has worsened. Symptoms are described as severe. No relieving factors. Review of Systems Constitutional: denies: Fever, Chills Eyes: denies: Discharge Ears: denies: Ear pain Nose: denies: Congestion Throat: denies: Sore throat Cardiac: denies: Chest pain / pressure GI: reports: Abdominal Pain : reports: Hematuria Skin: denies: Rash Musculoskeletal: denies: Back pain Neurologic: denies: Headache Immunocompromised: denies: Chemotherapy PD PAST MEDICAL HISTORY - Past Medical History Cardiovascular: Hypertension, [place] Respiratory: COPD, Pneumonia, CPAP use Neuro: CVA Endocrine/Autoimmune: None GI: Colon polyps : Kidney stones HEENT: None Psych: None Musculoskeletal: Osteoporosis Derm: None - Past Surgical History Past Surgical History: Yes General: Hiatal hernia repair HEENT: Rhinoplasty - Present Medications Home Medications: Ambulatory Orders Medication Instructions Recorded Confirmed Hydrochlorothiazide [Microzide] 12.5 mg PO DAILY 06/23/13 11/07/14 diltiaZEM CD [Cardizem Cd] 180 mg PO DAILY 06/23/13 11/07/14 Hydrocodone/Acetaminophen 1 - 2 tab PO Q6H PRN #14 tablet 11/07/14 [Hydrocodon-Acetaminophen 5-325] guaiFENesin/CODEINE [Robitussin AC] 5 - 10 ml PO Q6H PRN #120 ml 11/07/14 guaiFENesin/CODEINE [Robitussin AC] 5 - 10 ml PO Q6H PRN #120 ml 03/08/17 predniSONE [Deltasone] 60 mg PO DAILY 5 Days tablet 03/08/17 Allopurinol 02/20/18 Aspirin 02/20/18 Clopidogrel [Plavix] 02/20/18 Gabapentin 02/20/18 Nitroglycerin [Nitrostat] 02/20/18 Pantoprazole [Protonix] 02/20/18 Sod/Pot/K Cit/Sod Cit/Cit Acid 02/20/18 [Potass Cit-Sod Cit-Citric Soln] Tamsulosin [Flomax] 02/20/18 hydroCHLOROthiazide 02/20/18 [Hydrochlorothiazide] traMADol [Ultram] 02/20/18 Amox/Clav 875/125 [Augmentin] 1 each PO Q12H #20 tablet 05/03/18 - Allergies Allergies/Adverse Reactions: Allergies Allergy/AdvReac Type Severity Reaction Status Date / Time losartan AdvReac Unknown Verified 07/11/18 18:55 - Social History Does the pt smoke?: Yes Smoking Status: Current every day smoker Does the pt drink ETOH?: Yes Does the pt have substance abuse?: No - Immunizations Immunizations are current?: Yes PD ED PE NORMAL - General General: Alert and oriented X 3. No: No acute distress (Patient appears exquisitely uncomfortable) - HEENT HEENT: Atraumatic - Cardiac Cardiac: Other (Tachycardia with regular rate) - Respiratory Respiratory: No respiratory distress - Abdomen Abdomen: Soft, Non distended. No: Non tender (The patient has left-sided tenderness) - Back Back: No: No CVA TTP (Left flank pain) - Derm Derm: Normal color - Extremities Extremities: No deformity - Neuro Neuro: Alert and oriented X 3 - Psych Psych: Normal mood Results - Vitals Vitals: Vital Signs - 24 hr 07/11/18 07/11/18 07/11/18 18:52 19:45 19:49 Temperature 36 C L Heart Rate 105 H 106 H Respiratory 20 20 Rate Blood Pressure 105/85 H 104/82 H O2 Saturation 98 98 07/11/18 07/11/18 20:20 20:48 Temperature Heart Rate 110 H 102 H Respiratory 16 19 Rate Blood Pressure 82/67 L 114/78 O2 Saturation 96 98 Oxygen O2 Source [Without Activity] Room air O2 Source Nasal cannula Oxygen Flow Rate 2 - Labs Labs: Laboratory Tests 07/11/18 07/11/18 19:35 19:35 WBC 16.5 H RBC 4.87 Hgb 14.7 Hct 44.1 MCV 90.6 MCH 30.3 MCHC 33.4 RDW 14.1 Plt Count 210 MPV 8.9 Neut # (Auto) 14.3 H Lymph # (Auto) 1.2 L [place] # (Auto) 0.9 Eos # (Auto) 0.0 Baso # (Auto) 0.1 Absolute Nucleated RBC 0.01 Nucleated RBC % 0.0 Sodium 132 L Potassium 4.0 Chloride 98 L Carbon Dioxide 23 Anion Gap 11.0 BUN 23 H Creatinine 1.7 H Estimated GFR (MDRD) 40 L Glucose 332 H Calcium 9.0 Total Bilirubin 1.2 H AST 30 ALT 36 Alkaline Phosphatase 92 Total Protein 6.5 L Albumin 3.6 Globulin 2.9 Albumin/Globulin Ratio 1.2 Lipase 34 - Rads (name of study) CT abd/pelvis Radiology: Final report received (Moderate to large left kidney subcapsular hematoma with significant mass-effect exerted on the left kidney parenchyma. There is mild perirenal and retroperitoneal extent of the hematoma. ) PD MEDICAL DECISION MAKING - ED course ED course: The findings were discussed with the on-call urologist Dr. Lu from [facility]. She accepts the patient in transfer back to the facility for ongoing management. The patient had an episode of low blood pressure which most likely is secondary to the Dilaudid he received, after IV fluids the patient's blood pressure has normalized. Currently the patient appears stable for transfer. The findings and plan were discussed the patient who understands and agrees to the plan - Sepsis Event Vital Signs: Vital Signs - 24 hr 07/11/18 07/11/18 07/11/18 18:52 19:45 19:49 Temperature 36 C L Heart Rate 105 H 106 H Respiratory 20 20 Rate Blood Pressure 105/85 H 104/82 H O2 Saturation 98 98 07/11/18 07/11/18 20:20 20:48 Temperature Heart Rate 110 H 102 H Respiratory 16 19 Rate Blood Pressure 82/67 L 114/78 O2 Saturation 96 98 Oxygen O2 Source [Without Activity] Room air O2 Source Nasal cannula Oxygen Flow Rate 2 Departure - Departure Disposition: 02 Transfer Acute Care Hosp Clinical Impression: Acute left flank pain Renal hematoma, left Qualifiers: Encounter type: initial encounter Qualified Code(s): S37.012A - Minor contusion of left kidney, initial encounter Condition: Fair
[2018-07-11] MEDS ORDERED: INSULIN REGULAR HUMAN 100 UNIT/1 ML 10 ML MDV IVP STA (20:50)
[2018-07-11 21:58] VITALS: BP 125/97
[2018-07-11 22:04] LABS: GLUCOSE, URINE (UA) 500 mg/dL (NEGATIVE); KETONES,URINE (UA) TRACE mg/dL (NEGATIVE); LEUKOCYTE ESTERASE, URINE NEGATIVE (NEGATIVE); NITRITE,URINE POSITIVE (NEGATIVE); OCCULT BLOOD,URINE LARGE (NEGATIVE); PROTEIN,URINE >=300 mg/dL (NEGATIVE); UROBILINOGEN,URINE 1 (NORMAL) E.U./dL (NORMAL)
[2018-07-11 22:20] LABS: BILIRUBIN,URINE NEGATIVE (NEGATIVE); CLARITY,URINE CLOUDY (CLEAR); ICTOTEST,URINE NEGATIVE
[2018-07-11 22:27] LABS: AMORPHOUS SEDIMENT,UR Moderate /LPF; BACTERIA,URINE Moderate /HPF (None Seen); RBC,URINE TNTC /HPF (0-5); SQUAMOUS EPITHELIAL CELL,UR NONE SEEN (<= Few)
== END 2018-07-11 21:58 | disposition short-term general hospital (02) ==
LOC: EDUNIT# → ED 18:40
DX: S37.012A Minor contusion of left kidney, initial encounter (principal); R10.9 Unspecified abdominal pain; I95.9 Hypotension, unspecified; I10 Essential (primary) hypertension; I25.2 Old myocardial infarction; J44.9 Chronic obstructive pulmonary disease, unspecified; F17.200 Nicotine dependence, unspecified, uncomplicated; Z86.73 Personal history of transient ischemic attack (TIA), and cerebral infarction without residual deficits; Z98.890 Other specified postprocedural states
CPT/HCPCS: 36415; 74176; 80053; 81001; 83690; 85025; 87086; 96361; 96374; 99284; J1170; J1815; 81003; 99285

== ENCOUNTER 2018-07-11 21:54 | Outpatient (CLI) | payer MEDICARE, OTHER | END 2018-07-11 21:55 | disposition short-term general hospital (02) | LOC: EMS 21:54 | PROVIDERS: ATTEND Surgery | DX: R10.9 Unspecified abdominal pain (principal) | CPT/HCPCS: A0425; A0426 ==

== ENCOUNTER 2018-09-25 15:56 | Emergency (ER) | payer MEDICARE, OTHER ==
[2018-09-25 16:50] LABS: BASOPHILS # (AUTO) 0.1 10^3/uL (0.0-0.1); BASOPHILS % (AUTO) 1.2 %; EOSINOPHILS # (AUTO) 0.3 10^3/uL (0.0-0.7); EOSINOPHILS % (AUTO) 2.6 %; HGB - HEMOGLOBIN 16.6 g/dL (14.0-18.0); LYMPHOCYTES # (AUTO) 2.2 10^3/uL (1.5-3.5); LYMPHOCYTES % (AUTO) 22.6 %; MEAN CORPUSCULAR HEMOGLOBIN 28.4 pg (27.0-31.0); MEAN CORPUSCULAR HGB CONC 32.7 g/dL (32.0-36.0); MEAN CORPUSCULAR VOLUME 86.8 fL (80.0-94.0); MEAN PLATELET VOLUME 8.3 fL (7.4-11.4); MONOCYTES % (AUTO) 10.5 %; NEUTROPHILS # (AUTO) 6.2 10^3/uL (1.5-6.6); NEUTROPHILS % (AUTO) 63.1 %; PLT - PLATELET COUNT 263 10^3/uL (130-450); RED BLOOD COUNT 5.85 10^6/uL (4.70-6.10); RED CELL DISTRIBUTION WIDTH 15.2 % (12.0-15.0); WHITE BLOOD COUNT 9.8 x10^3/uL (4.8-10.8)
--- NOTE | 2018-09-25 16:55 | ED Physician Documentation ---
PD HPI URI - Stated complaint Stated Complaint: WEAKNESS/DIZZY/FATIGUE - Chief complaint Chief Complaint: Cardiac - History obtained from History obtained from: Patient - History of Present Illness Timing - onset: How many weeks ago (10/25) Timing duration: Weeks (10/25) Timing details: Abrupt onset, Still present Associated symptoms: Fever (initially, not the past week), Chills, Dry cough, NVD (nausea but no vomiting, some diarrhea initially but normal now). No: Sore throat Contributing factors: No: Sick contact, Travel Improves by: Rest Worsened by: Activity (he feels very fatigued with activity, even normal daily stuff.) Similar symptoms before: Has not had sx before Recently seen: Clinic (seen by PCP a week ago and Rx [place]? for 5 days and finished it 2 days ago. Not feeling any better.) Review of Systems Constitutional: reports: Fever, Chills, Myalgias, Fatigue Nose: reports: Congestion Throat: denies: Sore throat Respiratory: reports: Cough GI: reports: Nausea. denies: Vomiting, Diarrhea Skin: denies: Rash Neurologic: reports: Generalized weakness. denies: Focal weakness, Numbness, Near syncope, Altered mental status, Headache PD PAST MEDICAL HISTORY - Past Medical History Past Medical History: Yes Cardiovascular: Hypertension, [place] Respiratory: COPD, Pneumonia, CPAP use Neuro: CVA Endocrine/Autoimmune: None GI: Colon polyps, Other : Kidney stones HEENT: None Psych: None Musculoskeletal: Osteoporosis Derm: None - Past Surgical History Past Surgical History: Yes General: Hiatal hernia repair HEENT: Rhinoplasty - Present Medications Home Medications: Ambulatory Orders Medication Instructions Recorded Confirmed Hydrochlorothiazide [Microzide] 12.5 mg PO DAILY 06/23/13 11/07/14 diltiaZEM CD [Cardizem Cd] 180 mg PO DAILY 06/23/13 11/07/14 Hydrocodone/Acetaminophen 1 - 2 tab PO Q6H PRN #14 tablet 11/07/14 [Hydrocodon-Acetaminophen 5-325] guaiFENesin/CODEINE [Robitussin AC] 5 - 10 ml PO Q6H PRN #120 ml 11/07/14 guaiFENesin/CODEINE [Robitussin AC] 5 - 10 ml PO Q6H PRN #120 ml 03/08/17 predniSONE [Deltasone] 60 mg PO DAILY 5 Days tablet 03/08/17 Allopurinol 02/20/18 Aspirin 02/20/18 Clopidogrel [Plavix] 02/20/18 Gabapentin 02/20/18 Nitroglycerin [Nitrostat] 02/20/18 Pantoprazole [Protonix] 02/20/18 Sod/Pot/K Cit/Sod Cit/Cit Acid 02/20/18 [Potass Cit-Sod Cit-Citric Soln] Tamsulosin [Flomax] 02/20/18 hydroCHLOROthiazide 02/20/18 [Hydrochlorothiazide] traMADol [Ultram] 02/20/18 Amox/Clav 875/125 [Augmentin] 1 each PO Q12H #20 tablet 05/03/18 Dexamethasone [Decadron] 4 mg PO DAILY #5 tablet 09/25/18 - Allergies Allergies/Adverse Reactions: Allergies Allergy/AdvReac Type Severity Reaction Status Date / Time losartan AdvReac Unknown Verified 07/11/18 18:55 - Social History Does the pt smoke?: Yes Smoking Status: Current some day smoker Does the pt drink ETOH?: Yes ETOH Use: Liquor Does the pt have substance abuse?: No - Immunizations Immunizations are current?: Yes - POLST Patient has POLST: No PD ED PE NORMAL - Vitals Vital signs reviewed: Yes - General General: Alert and oriented X 3, No acute distress, Well developed/nourished - HEENT HEENT: Pharynx benign - Neck Neck: Supple, no meningeal sign, No adenopathy - Cardiac Cardiac: RRR, No murmur - Respiratory Respiratory: Clear bilaterally - Abdomen Abdomen: Soft, Non tender - Back Back: No CVA TTP - Derm Derm: Normal color, Warm and dry - Extremities Extremities: No tenderness to palpate, Normal ROM s pain, No edema, No calf tenderness / cord - Neuro Neuro: Alert and oriented X 3, No motor deficit, Normal speech Results - Vitals Vitals: Oxygen O2 Source [Without Activity] Room air O2 Source Room air - EKG (time done) 16:08 Rate: Rate (enter#) (74) Rhythm: NSR [place]: Normal Intervals: Normal [place] QRS: Normal Ischemia: Normal ST segments. No: ST elevation c/w ischemia, ST depression - Labs Labs: Laboratory Tests 09/25/18 09/25/18 09/25/18 16:39 16:39 16:39 WBC 9.8 RBC 5.85 Hgb 16.6 Hct 50.8 MCV 86.8 MCH 28.4 MCHC 32.7 RDW 15.2 H Plt Count 263 MPV 8.3 Neut # (Auto) 6.2 Lymph # (Auto) 2.2 Sunflower # (Auto) 1.0 Eos # (Auto) 0.3 Baso # (Auto) 0.1 Absolute Nucleated RBC 0.01 Nucleated RBC % 0.1 Sodium 130 L Potassium 3.6 Chloride 94 L Carbon Dioxide 28 Anion Gap 8.0 BUN 24 H Creatinine 1.5 H Estimated GFR (MDRD) 46 L Glucose 148 H Calcium 9.9 Magnesium Total Bilirubin 0.9 AST 22 ALT 40 Alkaline Phosphatase 133 H Troponin I < 0.04 Total Protein 8.0 Albumin 4.0 Globulin 4.0 Albumin/Globulin Ratio 1.0 Lipase 41 TSH 09/25/18 09/25/18 16:39 16:39 WBC RBC Hgb Hct MCV MCH MCHC RDW Plt Count MPV Neut # (Auto) Lymph # (Auto) Sunflower # (Auto) Eos # (Auto) Baso # (Auto) Absolute Nucleated RBC Nucleated RBC % Sodium Potassium Chloride Carbon Dioxide Anion Gap BUN Creatinine Estimated GFR (MDRD) Glucose Calcium Magnesium 2.1 Total Bilirubin AST ALT Alkaline Phosphatase Troponin I Total Protein Albumin Globulin Albumin/Globulin Ratio Lipase TSH 3.55 - Rads (name of study) chest xray Radiology: Prelim report reviewed, EMP read contemporaneously (no infiltrates, normal heart size), See rad report PD MEDICAL DECISION MAKING - ED course Complexity details: reviewed results (does not have signs of sepsis, pneumonia, test neg for flu. Labs are okay. Presume just flu-like and feeling really badly from it. ), considered differential, d/w patient Departure - Departure Disposition: 01 Home, Self Care Clinical Impression: Upper respiratory infection Qualifiers: URI type: unspecified URI Qualified Code(s): J06.9 - Acute upper respiratory infection, unspecified Fatigue Qualifiers: Fatigue type: unspecified Qualified Code(s): R53.83 - Other fatigue Condition: Stable Record reviewed to determine appropriate education?: Yes Instructions: ED Viral Syndrome Follow-Up: Sean Blankenship MD [Primary Care Provider] - Prescriptions: Dexamethasone [Decadron] 4 mg PO DAILY #5 tablet Comments: You do not have any signs of pneumonia or sepsis or more significant illness based on your tests. You are still feeling badly and presumably the infection you it had is just causing significant fatigue and tiredness. This should improve as your infection is clearing. I do not think more antibiotics would be helpful. An anti-inflammatory such as Decadron may help over the next few days. Drink lots of fluids and use Tylenol if needed. Follow-up with your primary care later this week as planned. Discharge Date/Time: 09/25/18 18:42
[2018-09-25 17:05] LABS: BILIRUBIN,TOTAL 0.9 mg/dL (0.2-1.0); CALCIUM 9.9 mg/dL (8.5-10.3); CREATININE 1.5 mg/dL (0.6-1.2)
[2018-09-25] MEDS ORDERED: SODIUM CHLORIDE 0.9% 1,000 ML IV ONE (17:12)
[2018-09-25] MEDS ORDERED: DEXAMETHASONE 10 MG/ML VIAL IVP STA (17:13)
--- NOTE | 2018-09-25 17:19 | XRAY Report ---
Reason: weak, fatigued, dizzy Procedure Date: 09/25/2018 Accession Number: [id number] / [id number] Procedure: XR - Chest 1 View X-Ray CPT Code: 98612 FULL RESULT: EXAM: CHEST RADIOGRAPHY EXAM DATE: 09/25/2018 04:48 PM. CLINICAL HISTORY: Weak, fatigued, dizzy for 1 week. COMPARISON: CHEST 2 VIEW 05/03/2018 8:21 AM. TECHNIQUE: 1 view. FINDINGS: Lungs/Pleura: No focal opacities evident. No pleural effusion. No pneumothorax. Mediastinum: Within exam limitations, the cardiomediastinal contour is normal. Other: None. IMPRESSION: Normal single view chest. RADIA
[2018-09-25 18:32] VITALS: BP 153/97
== END 2018-09-25 18:42 | disposition home or self-care (01) ==
LOC: ED 15:56
DX: J06.9 Acute upper respiratory infection, unspecified (principal); R53.83 Other fatigue; I10 Essential (primary) hypertension; J44.9 Chronic obstructive pulmonary disease, unspecified; F17.200 Nicotine dependence, unspecified, uncomplicated; Z87.01 Personal history of pneumonia (recurrent)
CPT/HCPCS: 36415; 71045; 80053; 83690; 83735; 84443; 84484; 85025; 93005; 99283

== ENCOUNTER 2018-10-16 14:46 | Emergency (ER) | payer MEDICARE, OTHER ==
[2018-10-16] MEDS ORDERED: IBUPROFEN 600 MG TABLET PO STA (15:58)
--- NOTE | 2018-10-16 16:01 | ED Physician Documentation ---
History of Present Illness - Stated complaint Stated Complaint: L SIDE FACIAL PX/NAUSEA - Chief complaint Chief Complaint: General - History obtained from History obtained from: Patient - History of Present Illness Timing: How many days ago (4) Pain level max: 7 Pain level now: 7 Improved by: nothing Worsened by: nothing - Additonal information Additional information: Patient is a 68-year-old male who presents with nasal congestion for the past 3- 4 days. Worsening sinus pressure. Feels similar to a sinus infection he had back in April of this last year. Has been unable to keep his blood pressure medications down secondary to vomiting. States his blood pressure is normally very high when he does not take his medications. No chest pain. No shortness of breath. No visual changes. No numbness or tingling. No focal neurological deficits Review of Systems Ten Systems: 10 systems reviewed and negative Constitutional: reports: Fever. denies: Chills Ears: denies: Ear pain Nose: reports: Congestion, Sinus pressure / pain Throat: denies: Sore throat Cardiac: denies: Chest pain / pressure Respiratory: denies: Cough GI: reports: Nausea, Vomiting. denies: Abdominal Pain, Diarrhea Skin: denies: Rash Musculoskeletal: denies: Neck pain, Back pain PD PAST MEDICAL HISTORY - Past Medical History Cardiovascular: Hypertension, [place] Respiratory: COPD, Pneumonia, CPAP use Neuro: CVA Endocrine/Autoimmune: None GI: Colon polyps, Other : Kidney stones HEENT: None Psych: None Musculoskeletal: Osteoporosis Derm: None - Past Surgical History Past Surgical History: Yes General: Hiatal hernia repair HEENT: Rhinoplasty - Present Medications Home Medications: Ambulatory Orders Medication Instructions Recorded Confirmed Hydrochlorothiazide [Microzide] 12.5 mg PO DAILY 06/23/13 11/07/14 diltiaZEM CD [Cardizem Cd] 180 mg PO DAILY 06/23/13 11/07/14 Hydrocodone/Acetaminophen 1 - 2 tab PO Q6H PRN #14 tablet 11/07/14 [Hydrocodon-Acetaminophen 5-325] guaiFENesin/CODEINE [Robitussin AC] 5 - 10 ml PO Q6H PRN #120 ml 11/07/14 guaiFENesin/CODEINE [Robitussin AC] 5 - 10 ml PO Q6H PRN #120 ml 03/08/17 predniSONE [Deltasone] 60 mg PO DAILY 5 Days tablet 03/08/17 Allopurinol 02/20/18 Aspirin 02/20/18 Clopidogrel [Plavix] 02/20/18 Gabapentin 02/20/18 Nitroglycerin [Nitrostat] 02/20/18 Pantoprazole [Protonix] 02/20/18 Sod/Pot/K Cit/Sod Cit/Cit Acid 02/20/18 [Potass Cit-Sod Cit-Citric Soln] Tamsulosin [Flomax] 02/20/18 hydroCHLOROthiazide 02/20/18 [Hydrochlorothiazide] traMADol [Ultram] 02/20/18 Amox/Clav 875/125 [Augmentin] 1 each PO Q12H #20 tablet 05/03/18 Dexamethasone [Decadron] 4 mg PO DAILY #5 tablet 09/25/18 Amox/Clav 875/125 [Augmentin] 1 each PO Q12H #20 tablet 10/16/18 Hydrocodone/Acetaminophen 1 - 2 each PO Q6H PRN #14 tablet 10/16/18 [Hydrocodon-Acetaminophen 5-325] - Allergies Allergies/Adverse Reactions: Allergies Allergy/AdvReac Type Severity Reaction Status Date / Time losartan AdvReac Unknown Verified 07/11/18 18:55 - Social History Does the pt smoke?: Yes Smoking Status: Current every day smoker Does the pt drink ETOH?: Yes Does the pt have substance abuse?: No - Immunizations Immunizations are current?: Yes - POLST Patient has POLST: No PD ED PE NORMAL - Vitals Vital signs reviewed: Yes - General General: Alert and oriented X 3, No acute distress, Well developed/nourished - HEENT HEENT: PERRL, EOMI, Ears normal, Moist mucous membranes, Pharynx benign, Other (Tender palpation over the left frontal and maxillary sinuses) - Neck Neck: Supple, no meningeal sign - Cardiac Cardiac: RRR, Strong equal pulses - Respiratory Respiratory: No respiratory distress, Clear bilaterally - Abdomen Abdomen: Soft, Non tender, Non distended - Derm Derm: Warm and dry, No rash - Neuro Neuro: Alert and oriented X 3 - Psych Psych: Normal mood, Normal affect Results - Vitals Vitals: Vital Signs - 24 hr 10/16/18 15:00 Temperature 36.4 C L Heart Rate 69 Respiratory 20 Rate Blood Pressure 207/117 H O2 Saturation 100 Oxygen O2 Source [Without Activity] Room air O2 Source Room air PD MEDICAL DECISION MAKING - ED course Complexity details: considered differential, d/w patient ED course: 68-year-old male with what appears to be a sinus infection. Will place on antibiotics for home. Has not taken his blood pressure medication for 2 days. Will prescribe nausea medication as well. He will take his blood pressure medication when he gets home. No evidence of subarachnoid hemorrhage at this time. Patient counseled regarding signs and symptoms for which I believe and urgent re-evaluation would be necessary. Patient with good understanding of and agreement to plan and is comfortable going home at this time This document was made in part using voice recognition software. While efforts are made to proofread this document, sound alike and grammatical errors may occur. Departure - Departure Disposition: Home, Self Care Clinical Impression: Sinusitis Qualifiers: Sinusitis location: frontal Chronicity: acute Recurrence: non-recurrent Qualified Code(s): J01.10 - Acute frontal sinusitis, unspecified Condition: Good Instructions: ED Sinusitis Abx Tx Follow-Up: Sean Blankenship MD [Primary Care Provider] - Within 1 week Prescriptions: Amox/Clav 875/125 [Augmentin] 1 each PO Q12H #20 tablet Hydrocodone/Acetaminophen [Hydrocodon-Acetaminophen 5-325] 1 - 2 each PO Q6H PRN #14 tablet PRN Reason: pain Comments: Take all antibiotics until gone. Return if you worsen. Follow-up with your doctor for further evaluation and care. Do not drink alcohol or drive while on narcotic pain medicine. Note that many narcotic pain relievers also contain tylenol/acetaminophen. Please ensure that your total dose of acetaminophen from all sources does not exceed 3 grams (3000mg) per day. You may constipated on this medication, take a stool softener such as "Colace" twice a day while you are on it. Also recommend a [id number] laxative such as senna or MiraLAX any day that you do not have a bowel movement. If you received narcotic pain medication in the emergency department, do not drive or operate machinery for the next 24 hours.
[2018-10-16 16:14] VITALS: BP 195/103
== END 2018-10-16 16:13 | disposition home or self-care (01) ==
LOC: ED 14:46
DX: J01.10 Acute frontal sinusitis, unspecified (principal); I10 Essential (primary) hypertension; Z79.82 Long term (current) use of aspirin; F17.200 Nicotine dependence, unspecified, uncomplicated
CPT/HCPCS: 99283; A9270

== ENCOUNTER 2019-02-14 06:23 | Outpatient (CLI) | payer MEDICARE, OTHER | END 2019-02-14 06:24 | disposition short-term general hospital (02) | LOC: EMS 06:23 | PROVIDERS: ATTEND Surgery | DX: R07.9 Chest pain, unspecified (principal) | CPT/HCPCS: A0425; A0427 ==

== ENCOUNTER 2019-02-28 09:20 | Outpatient (CLI) | payer MEDICARE, OTHER ==
--- NOTE | 2019-02-28 12:02 | Ultrasound Report ---
Reason: CLAUDICATION BILATERAL Procedure Date: 02/28/2019 Accession Number: [id number] / [id number] Procedure: US - Ankle Brachial Index CPT Code: FULL RESULT: EXAM: BILATERAL ANKLE/BRACHIAL INDEX EXAM DATE: 02/28/2019 09:33 AM. CLINICAL HISTORY: Claudication bilaterally. COMPARISON: None. TECHNIQUE: A blood pressure cuff and pulse volume recording Doppler ultrasound was used to evaluate the arterial pressures in the arms and ankle. No images were acquired. FINDINGS: Brachial pressure: Right brachial artery: 177/106 mmHg, index 1.00 Left brachial artery: 163/106 mmHg, index 1.00 Right ankle pressures: Dorsalis pedis artery: Relatively preserved arterial upstroke, biphasic waveform. Posterior tibial artery: 164/107 mmHg, index 1, brisk arterial upstroke with preserved waveform, biphasic. Left ankle pressures: Dorsalis pedis artery: Tardus parvus waveform with minimal flow detected by spectral Doppler, peak systolic velocity under 10 cm/s. No detectable blood pressure. Posterior tibial artery: No detectable blood pressure. Tardus parvus waveform with diminished peak systolic velocity of 14. IMPRESSION: 1. Right ankle/brachial index: 1. 2. Left ankle/brachial index: Could not be constructed due to severe peripheral arterial disease. Tardus parvus waveform suggestive of hemodynamically significant inflow disease. Recommendation: Referral for angiography, potentially with CO2 depending on renal function. ANKLE/BRACHIAL INDEX REFERENCE STANDARDS 1.0-1.4: Normal 0.90-0.99: Borderline RADIA The call report notification system was initiated by Dr. Michael Sanchez at 11:48 AM on 02/28/2019. ADDENDUM: 02/28/19 12:38 The above call report findings were discussed with Yoanna Stephens by Dr. Michael Sanchez at 12:38 PM on 02/28/2019.
== END 2019-02-28 09:21 | disposition home or self-care (01) ==
LOC: DI 09:20
PROVIDERS: ATTEND Physician Assistant Medical
DX: I73.9 Peripheral vascular disease, unspecified (principal)
CPT/HCPCS: 93922

== ENCOUNTER 2019-12-03 16:50 | Outpatient (CLI) | payer MEDICARE, OTHER | END 2019-12-03 23:59 | disposition home or self-care (01) | LOC: LAB.R 16:50 | PROVIDERS: ATTEND Physician Assistant Medical | DX: R35.0 Frequency of micturition (principal) | CPT/HCPCS: 87086 ==

== ENCOUNTER 2019-12-06 14:47 | Outpatient (CLI) | payer MEDICARE, OTHER | END 2019-12-06 14:48 | disposition home or self-care (01) | LOC: DI 14:47 | PROVIDERS: ATTEND Internal Medicine Cardiovascular Disease | DX: I25.10 Atherosclerotic heart disease of native coronary artery without angina pectoris (principal); I51.89 Other ill-defined heart diseases; R81 Glycosuria; R35.0 Frequency of micturition | CPT/HCPCS: 36415; 80048; 82043; 82570; 83036; 87086; 93306 ==

== ENCOUNTER 2019-12-06 15:37 | Outpatient (CLI) | payer MEDICARE, OTHER ==
[2019-12-06 16:15] LABS: CALCIUM 10.1 mg/dL (8.5-10.3); CREATININE 1.9 mg/dL (0.6-1.2)
[2019-12-06 16:16] LABS: MICROALBUM/CREATININE RATIO,UR 124.5 ug/mg (<30.0)
[2019-12-06 16:22] LABS: HB2 TOTAL 17.5 g/dL; HEMOGLOBIN A1C 1.94 g/dL; HEMOGLOBIN A1C % 12.3 % (4.6-6.2)
== END 2019-12-06 15:38 | disposition home or self-care (01) ==
LOC: LAB 15:37
PROVIDERS: ATTEND Physician Assistant Medical
DX: R81 Glycosuria (principal); R35.0 Frequency of micturition
CPT/HCPCS: 36415; 80048; 82043; 82570; 83036; 87086

== ENCOUNTER 2020-01-01 11:31 | Outpatient (CLI) | payer MEDICARE, OTHER ==
--- NOTE | 2020-01-01 16:30 | SLEEP CARE CONSULTATION ---
Information from patient questionnaire entered by Kandace Torres. I have reviewed and concur with the information entered by Kandace Torres. This document represents the service I personally performed and the decisions made by me, Yuni Luevano MD, [facility]. History of Present Illness Reason for Visit: New patient, Previously diagnosed sleep apnea (very severe - 67.8 AHI), sleep apnea on CPAP therapy Chief Complaint: reports: Insomnia, Unrefreshed sleep, Snoring, Excessive daytime sleepiness, Observed pauses in breathing, Fatigue, Frequent awakenings at night Duration of Symptoms: 15-20 years Usual bedtime: 12 - 1 am Snores at night: Yes Observed to quit breathing while asleep: Yes Number of times waking at night: 2 Reasons for waking at night: reports: Bathroom Toss, Turn, or Twitch while sleeping: Yes Recalls having dreams: Yes Usually gets out of bed at: no set time Feels refreshed in the morning: No Morning headache: No Sleepy or fatigued during the day: Yes Ever fallen asleep while driving: No Takes day naps: Yes Dreams during day naps: No Prior sleep studies: Yes Year and Where: 2018 - [facility] Additional HPI information: I had the pleasure of seeing Mr. Mcnair today regarding obstructive sleep apnea- hypopnea. As you know, he is a 70 year old gentleman who was first diagnosed with the sleep-disordered breathing about 20 years ago in [place]. He had another in-laboratory polysomnography in 2018 at [facility] in [place]. The AHI was 67.8. He was prescribed a new Respironics DreamStation autoCPAP device set at 7 10 cmH2O. He uses every night and all night. The compliance data show usage in 179 out of the past 180 nights, averaging 8.6 hours a night. The residual AHI is 7.2 and average time in large leak per day is 2 minutes. He wears a full face mask. He gets his supplies from [facility] and complains of being just recently billed for the device which should have been covered by Medicare. He finds the treatment very beneficial. He can no longer sleep without it. - Parasomnia Symptoms Ever been unable to move upon waking from sleep: No Ever felt weak in the knees when startled or emotional: No Bothered by creepy, crawly, restless sensations in legs: Yes Problems with memory or concentration: Yes CPAP Compliance Data - Data Reviewed with Patient Average duration of nightly device use: 8.7 Compliance rate %: 99.4 (180 days) Current pressure setting (cmH2O): 7-10 Humidity settin Heated hose settin Average residual AHI: 7.2 Average large leak: 2 min 46 sec Subjective Initial [place] Sleepiness Scale score: 12 Past Medical History Past Medical History: reports: Hypertension, GERD, Other (chronic sinusitis) Social History The patient's occupation is a SE. Patient is Single and lives in [place]. Have you smoked in the past 12 months: Yes Cigarettes per day (20/pack): 15 Years of smokin Smoking Pack Years: 38.5 Alcohol use: Yes Alcohol amount and frequency: 1-2 a month Caffeine use: Yes Family History Family history of sleep disordered breathing: No Allergies and Home Medications Drug allergies reviewed: Yes Home medication list reviewed: Yes Allergy and home medication list: Current Medications: hydrochlorothiazide, nitroglycerin, clopidogrel, carvedilol, gabapentin, lisinopril, tramadol, allopurinol, rosuvastatin, patoprozole, Nuvigil, Chantix, vitamins Allergies: No known drug allergies Review of Systems Cardiovascular: denies: high blood pressure, palpitations, chest pain, irregular heart rate or pulse, leg or foot swelling, have to sleep sitting up, other Respiratory: denies: shortness of breath, wheeze, sputum production, chronic cough, other Gastrointestinal: denies: heartburn, difficulty swallowing, nausea, vomitting, diarrhea, abdominal pain, other Urinary: denies: incontinence, frequency, urgency, impotence, other Neurological: denies: headaches, seizure, head trauma, disorientation, speech dysfunction, gait or balance problems, fainting or unconsciousness, other Psychiatric: denies: Attention Deficit Hyperactivity, anxiety, depression, mood disorder, claustrophobia, other Ear/Nose/Throat: reports: nasal congestion, sinus problems Endocrine: reports: sluggishness, increased urination Musculoskeletal: reports: joint pain, neck pain Immunologic: reports: sneezing Physical Exam Height: 5 ft 10 in Weight: 235 lb (Physical exam is deferred due to the Covid-19 epidemic.) Body Mass Index: 33.7 BMI Classification: Obese Impression and Plan IMPRESSION: 1. Obstructive Sleep Apnea-Hypopnea Syndrome, very severe, as previously diagn osed. The patient has had good treatment compliance. The current pressure setting appears comfortable but slightly ineffective. The patient experiences improvement on the treatment. Narrow oropharynx and obesity are common predisposing factors for obstructive sleep apnea-hypopnea syndrome. Pathophysiology of sleep-disordered breathing was discussed. I will prescribe him with more supplies. Plan: 1. Prescription made for supplies. 2. Try a ResMed AirTouch F-20 full face mask 3. Avoid alcohol, sedative and muscle relaxant around bedtime. 4. Attempt to lose weight. 5. Check with [facility] to see why he still has to pay for the CPAP device (most likely it is because he did not have a compliance follow up with the prescribing sleep physician within the initial 3 months period). 6. Return for follow up in a year or earlier if there is any problem. I spent 100% of this visit face to face with the patient with greater than 50% of this was spent time counseling the patient and coordination of care.
== END 2020-01-01 11:32 | disposition home or self-care (01) ==
LOC: SC 11:31
PROVIDERS: ATTEND Internal Medicine Pulmonary Disease
DX: G47.33 Obstructive sleep apnea (adult) (pediatric) (principal); E66.9 Obesity, unspecified; Z68.33 Body mass index [BMI] 33.0-33.9, adult
CPT/HCPCS: 99203; 99212

== ENCOUNTER 2020-05-01 19:44 | Outpatient (CLI) | payer MEDICARE, OTHER | END 2020-05-01 19:45 | disposition home or self-care (01) | LOC: SC 19:44 | PROVIDERS: ATTEND Internal Medicine Pulmonary Disease | DX: G47.33 Obstructive sleep apnea (adult) (pediatric) (principal); G47.61 Periodic limb movement disorder | CPT/HCPCS: 95811 ==

== ENCOUNTER 2021-04-18 12:38 | Outpatient (CLI) | payer MEDICARE, OTHER ==
[2021-04-18 15:24] LABS: HCT - HEMATOCRIT 49.8 % (42.0-52.0); HGB - HEMOGLOBIN 15.9 g/dL (14.0-18.0); MEAN CORPUSCULAR HEMOGLOBIN 28.8 pg (27.0-31.0); MEAN CORPUSCULAR HGB CONC 31.9 g/dL (32.0-36.0); MEAN CORPUSCULAR VOLUME 90.1 fL (80.0-94.0); MEAN PLATELET VOLUME 10.8 fL (7.4-11.4); RED BLOOD COUNT 5.53 10^6/uL (4.70-6.10); RED CELL DISTRIBUTION WIDTH 13.5 % (12.0-15.0); WHITE BLOOD COUNT 8.3 x10^3/uL (4.8-10.8)
[2021-04-18 15:50] LABS: CALCIUM 9.9 mg/dL (8.5-10.3); CREATININE 1.6 mg/dL (0.6-1.2); POTASSIUM 4.3 mmol/L (3.5-5.0)
== END 2021-04-18 23:59 | disposition home or self-care (01) ==
LOC: LAB.S 12:38
PROVIDERS: ATTEND Emergency Medicine
DX: I50.9 Heart failure, unspecified (principal)
CPT/HCPCS: 36415; 80048; 83880; 85025; 85027

== ENCOUNTER 2022-03-08 12:34 | Outpatient (CLI) | payer MEDICARE, OTHER ==
[2022-03-08 13:33] VITALS: BP 127/71
--- NOTE | 2022-03-08 13:33 | SLEEP CARE CONSULTATION ---
Information from patient questionnaire entered by Adalgisa Olivares MA. I have reviewed and concur with the information entered by Adalgisa Olivares MA. This document represents the service I personally performed and the decisions made by me, Yuni Luevano MD, [facility]. History of Present Illness Service Date and Time: 03/08/2022 1234 Previous diagnosis: Severe, Obstructive Sleep Apnea-Hypopnea Syndrome AHI: 51.6 (in 2018)(109.4 in 2001) Reason for follow up: annual (LAST SEEN 05/2020, JONI,) Equipment type: CPAP Prior sleep studies: Yes Year and Where: 2001 - [facility], 2017 - [facility] HPI additional information: Mr. Ba was diagnosed to have obstructive sleep apnea-hypopnea syndrome at [facility] long time ago and returns today for follow up of CPAP therapy. The patient purchased the device from [facility] and was fitted with a a DreamWisp nasal mask. He continues to use the device nightly and all through the night. The compliance report reveals daily usage of 7.7 hours a night. The > 4 hour compliance rate for the past 30 days is 100%. The autoCPAP is set at 7 10 cmH2O. The residual AHI is 3.5. Average time in large leak per day is 2 minutes. He complains of no particular problem with the device such as soreness on the face, dry nose, epistaxis, nasal congestion or headache. He thinks that the pressure of 7 - 10 cmH2O is comfortable. On the CPAP therapy he notices improvement in his sleep quality, and that he wakes up feeling fresher in the morning and more awake/alert during the day. [place] Sleepiness Scale score is 5. Sleep Study - Results Prior sleep studies: Yes Year and Where: 2001 - [facility], 2017 - [facility] Subjective Initial [place] Sleepiness Scale score: 12 (in 2019) Allergies and Home Medications Drug allergies reviewed: Yes Home medication list reviewed: Yes Allergy and home medication list: Allergies losartan Adverse Reaction (Verified 07/11/18 18:55) Unknown Review of Systems Review of systems same as previous: Yes Physical Exam Vital signs obtained and entered by: Arnaldo OLIVARES CMA AADMITRIY Blood Pressure: 127/71 (LEFT, PULSE 56, RESP 18, ) Heart Rate: 55 O2 Saturation: 97 Height: 5 ft 10 in Weight: 233 lb Body Mass Index: 33.4 BMI Classification: Obese Impression and Plan IMPRESSION: 1. Obstructive Sleep Apnea-Hypopnea Syndrome, of unknown severity, with the patient continuing to do well on nasal CPAP therapy. He has excellent compliance and significant clinical benefits. The current pressure appears effective and comfortable. Overall, he is very satisfied with treatment and plans to continue with it long-term. He would like to buy a traveling CPAP. PLAN: 1. Continue with autoCPAP set at 7 - 10 cm H2O. 2. Try to lose weight 3. Return in one year for follow up or earlier if there is any problem with the treatment. He will be eligible for a new device in January. Another in- laboratory polysomnography will have to be perform by then to document obstructive sleep apnea-hypopnea. Follow up with Sleep Care in: other (10 months) Visit Type: In Office Time Spent with Patient (minutes): 15 Provider Statement: I spent 100% of the Face to Face Visit with the patient with greater than 50% spent counseling the patient and coordination of care.
== END 2022-03-08 12:35 | disposition home or self-care (01) ==
LOC: SC 12:34
PROVIDERS: ATTEND Internal Medicine Pulmonary Disease
DX: G47.33 Obstructive sleep apnea (adult) (pediatric) (principal); E66.9 Obesity, unspecified; Z68.33 Body mass index [BMI] 33.0-33.9, adult
CPT/HCPCS: 99212; G0463

== ENCOUNTER 2023-02-14 10:36 | Outpatient (CLI) | payer MEDICARE, OTHER ==
--- NOTE | 2023-02-14 12:51 | SLEEP CARE CONSULTATION ---
Information from patient questionnaire entered by Avelino Arciniega. I have reviewed and concur with the information entered by Avelino Arciniega. This document represents the service I personally performed and the decisions made by me, Yuni Luevano MD, [facility]. History of Present Illness Service Date and Time: 02/14/2023 1036 Previous diagnosis: Severe, Obstructive Sleep Apnea-Hypopnea Syndrome AHI: 51.6 (in 2018)(109.4 in 2001) Reason for follow up: annual Equipment type: CPAP (DOUGLAS 02/2022) Prior sleep studies: Yes Year and Where: 2001 - [facility], 2017 - [facility] HPI additional information: Mr. Ba was diagnosed to have obstructive sleep apnea-hypopnea syndrome at [facility] long time ago and returns today for follow up of CPAP therapy. The patient purchased the device from [employer] and was fitted with a DreamWisp nasal mask. He continues to use the device nightly and all through the night. The compliance report reveals daily usage of 7.9 hours a night. The > 4 hour compliance rate for the past 180 days is 99%. The autoCPAP is set at 4 - 20 cmH2O. The residual AHI is 3.8. Average time in large leak per day is 5 minutes. He complains of no particular problem with the device such as soreness on the face, dry nose, epistaxis, nasal congestion or headache. He thinks that the pressure of 4 - 20 cmH2O is comfortable. On the CPAP therapy he notices improvement in his sleep quality, and that he wakes up feeling fresher in the morning and more awake/alert during the day. [place] Sleepiness Scale score is 14. Sleep Study - Results Prior sleep studies: Yes Year and Where: 2001 - [facility], 2017 - [facility] Subjective Initial [place] Sleepiness Scale score: 12 (in 2019) Current [place] Sleepiness Scale score: 14 (02/14/23) Allergies and Home Medications Drug allergies reviewed: Yes Home medication list reviewed: Yes Allergy and home medication list: Allergies losartan Adverse Reaction (Verified 07/11/18 18:55) Unknown Review of Systems Review of systems same as previous: Yes Physical Exam Vital signs obtained and entered by: AVELINO Estevez MA Blood Pressure: 130/82 (LEFT ARM) Cuff size: regular Heart Rate: 61 O2 Saturation: 98 Height: 5 ft 11 in Weight: 235 lb 6.4 oz Body Mass Index: 32.8 BMI Classification: Obese Impression and Plan IMPRESSION: 1. Obstructive Sleep Apnea-Hypopnea Syndrome, of unknown severity, with the patient continuing to do well on nasal CPAP therapy. He has excellent compliance and significant clinical benefits. The current pressure appears effective and comfortable. Overall, he is very satisfied with treatment and plans to continue with it long-term. Because his original [employer] Respironics DreamStation 1 autoCPAP is now older than the useful life of 5 years, he is eligible for a replacement. However, we will need a sleep study to document the sleep-related breathing disorder. PLAN: 1. Continue with autoCPAP set at 7 - 10 cm H2O. 2. Try to lose weight. 3. Schedule an in-laboratory polysomnography without CPAP. The patient was instructed to not use his CPAP one night prior to the sleep study but he does not think he can. 4. Return for follow up after the sleep study. 5. A ResMed F20 Airtouch full face mask size M given to him. Mask provided: Yes Counseling Topics: Weight control Follow up with Sleep Care in: 1-2 months Plan: In-lab PSG Visit Type: In Office Time Spent with Patient (minutes): 15 Provider Statement: I spent 100% of the Face to Face Visit with the patient with greater than 50% spent counseling the patient and coordination of care.
[2023-02-14 12:52] VITALS: BP 130/82
== END 2023-02-14 10:37 | disposition home or self-care (01) ==
LOC: SC 10:36
PROVIDERS: ATTEND Internal Medicine Pulmonary Disease
DX: G47.33 Obstructive sleep apnea (adult) (pediatric) (principal); E66.9 Obesity, unspecified; Z68.32 Body mass index [BMI] 32.0-32.9, adult
CPT/HCPCS: 99212; G0463

== ENCOUNTER 2023-09-10 08:00 | Outpatient (CLI) | payer MEDICARE, OTHER ==
--- NOTE | 2023-09-10 15:29 | XRAY Report ---
PROCEDURE: Abdomen Acute INDICATIONS: ABDOMINAL PAIN TECHNIQUE: 2 views of the abdomen were acquired. COMPARISON: None. FINDINGS: Surgical changes and devices: None. Chest: Lungs are clear. Heart size is normal. No pleural effusions. No pneumoperitoneum. Bowel: No pneumoperitoneum. The bowel gas pattern is normal. Stool load within normal limits. Soft tissues: No masses; visualized solid organ contours appear normal in size. Tiny calcifications over the bilateral renal shadows. Bones: No suspicious bony abnormalities. Subchondral cystic changes of the left greater than right femoral acetabular joints. IMPRESSION: Tiny calcifications projecting over the renal shadows may represent nephrolithiasis. Osteoarthritic changes of the bilateral hips. Reviewed by: Shawn Colvin MD on 09/10/2023 2:28 PM [place] Approved by: Shawn Colvin MD on 09/10/2023 2:28 PM [place] Station ID: [id number]
== END 2023-09-10 23:59 | disposition home or self-care (01) ==
LOC: DI.S 08:00
PROVIDERS: ATTEND Emergency Medicine
DX: R10.9 Unspecified abdominal pain (principal); M16.0 Bilateral primary osteoarthritis of hip

== ENCOUNTER 2023-09-10 15:53 | Emergency (ER) | payer MEDICARE, OTHER ==
[2023-09-10 16:10] VITALS: BP 160/90; O2SAT 98
--- NOTE | 2023-09-10 17:08 | ED Physician Documentation ---
PD HPI ABD PAIN - Stated complaint Stated Complaint: ABD PX - Chief complaint Chief Complaint: Abd Pain - History obtained from History obtained from: Patient - History of Present Illness Timing - onset: How many days ago (3-4) Timing - duration: Days (3-4) Timing - details: Waxing and waning Quality: Cramping, Aching, Pain Location: Suprapubic, Other (lower abd both right and left but most midline.) Radiation: Right flank Associated symptoms: Hematuria. No: Fever, Nausea, Vomiting, Diarrhea, Dysuria, Loss of appetite Similar symptoms before: Diagnosis (similar but not exactly like prior kidney stones, being more lower and middle, not as consistent.) Recently seen: Clinic (seen at [facility] and referred to ER.) Review of Systems Constitutional: denies: Fever, Chills Nose: denies: Rhinorrhea / runny nose, Congestion Throat: denies: Sore throat Respiratory: denies: Cough GI: reports: Abdominal Pain. denies: Vomiting, Constipation, Diarrhea : reports: Hematuria (mild without clots). denies: Dysuria PD PAST MEDICAL HISTORY - Past Medical History Past Medical History: Yes Cardiovascular: Hypertension, [place] Respiratory: COPD, Pneumonia, CPAP use Neuro: CVA Endocrine/Autoimmune: None GI: Colon polyps, Other : Kidney stones HEENT: None Psych: None Musculoskeletal: Osteoporosis Derm: None - Past Surgical History Past Surgical History: Yes General: Hiatal hernia repair HEENT: Rhinoplasty - Present Medications Home Medications: Ambulatory Orders Medication Instructions Recorded Confirmed diltiaZEM CD [Cardizem Cd] 180 mg PO DAILY 06/23/13 11/07/14 hydroCHLOROthiazide [Microzide] 12.5 mg PO DAILY 06/23/13 11/07/14 Hydrocodone/Acetaminophen 1 - 2 tab PO Q6H PRN #14 tablet 11/07/14 [Hydrocodon-Acetaminophen 5-325] guaiFENesin/CODEINE [Robitussin AC] 5 - 10 ml PO Q6H PRN #120 ml 11/07/14 guaiFENesin/CODEINE [Robitussin AC] 5 - 10 ml PO Q6H PRN #120 ml 03/08/17 predniSONE [Deltasone] 60 mg PO DAILY 5 Days tablet 03/08/17 Aspirin 02/20/18 Clopidogrel [Plavix] 02/20/18 Gabapentin 02/20/18 Nitroglycerin [Nitrostat] 02/20/18 Pantoprazole [Protonix] 02/20/18 Sod/Pot/K Cit/Sod Cit/Cit Acid 02/20/18 [Potass Cit-Sod Cit-Citric Soln] Tamsulosin [Flomax] 02/20/18 allopurinoL [Allopurinol] 02/20/18 hydroCHLOROthiazide 02/20/18 [Hydrochlorothiazide] traMADol [Ultram] 02/20/18 Amox/Clav 875/125 [Augmentin] 1 each PO Q12H #20 tablet 05/03/18 dexAMETHasone [Decadron] 4 mg PO DAILY #5 tablet 09/25/18 Amox/Clav 875/125 [Augmentin] 1 each PO Q12H #20 tablet 10/16/18 Hydrocodone/Acetaminophen 1 - 2 each PO Q6H PRN #14 tablet 10/16/18 [Hydrocodon-Acetaminophen 5-325] Naproxen 500 mg PO BID #20 tab 09/10/23 cephALEXin [Keflex] 500 mg PO TID #20 cap 09/10/23 - Allergies Allergies/Adverse Reactions: Allergies Allergy/AdvReac Type Severity Reaction Status Date / Time losartan AdvReac Unknown Verified 09/10/23 15:57 - Social History Does the pt smoke?: Yes Smoking Status: Current every day smoker Does the pt drink ETOH?: Yes Does the pt have substance abuse?: No - Immunizations Immunizations are current?: Yes - POLST Patient has POLST: No PD ED PE NORMAL - Vitals Vital signs reviewed: Yes - General General: Alert and oriented X 3, Well developed/nourished, Other (he does not appear in much discomfort. ) - Cardiac Cardiac: RRR, No murmur - Respiratory Respiratory: Clear bilaterally - Abdomen Abdomen: Normal bowel sounds, Soft, Non distended, No organomegaly, Other (tender without guarding suprapubic area dn both rihgt/left lower. No percussion nor rebound tender. ) - Male Male : Deferred - Rectal Rectal: Deferred - Back Back: No CVA TTP - Derm Derm: Normal color, Warm and dry - Extremities Extremities: No edema, No calf tenderness / cord - Neuro Neuro: Alert and oriented X 3, No motor deficit, Normal speech Results - Vitals Vitals: Vital Signs - 24 hr 11/18/23 15:57 Temperature 36.8 C Heart Rate 69 Respiratory 16 Rate Blood Pressure 160/90 H O2 Saturation 98 Oxygen O2 Source [Without Activity] Room air O2 Source Room air - Labs Labs: Laboratory Tests 09/10/23 17:31 Urine Color DARK YELLOW Urine Clarity HAZY Urine pH 5.5 Ur Specific [place] >=1.030 H Urine Protein >=300 H Urine Glucose (UA) NEGATIVE Urine Ketones NEGATIVE Urine Occult Blood TRACE-INTA Urine Nitrite NEGATIVE Urine Bilirubin NEGATIVE Urine Urobilinogen 0.2 (NORMAL) Ur Leukocyte Esterase NEGATIVE Urine RBC 0-5 Urine WBC 0-3 Ur Squamous Epith Cells FEW Squamous Amorphous Sediment Few Urine Bacteria Few Urine Casts 3-5 Hyaline Casts Ur Microscopic Review INDICATED Urine Culture Comments NOT INDICATED - Rads (name of study) abd/pelvuc KUB CT Relevant Findings:: Prelim report reviewed (5 mm stone left kidney nonobstructing. hazy mild inflammation at head of pancreas. Correlat clinically. prior kidney scarring/post traumatic change noted, present in 2018 as well. ), EMP independent interpretation of test PD Medical Decision Making - ED course Complexity details: reviewed results (CT showed no stones passing. No other acute process lower abd. mild inflammation near head of pancreas. This does not correlate clinically as not tender nor pain upper abd. Pt preferred not getting labs. I do not feel they are needed. UA could be suggestive of UTI, and would be locale for his sxs.), considered differential (lower abd to right abd pain 3-4 days. Not taken any meds for it. history of stones. No upper abd pain. ), d/w patient Departure - Departure Disposition: 01 Home, Self Care Clinical Impression: Lower abdominal pain Condition: Stable Instructions: ED Abdominal Pain Unkn Cause Male Follow-Up: JOHN MAIER MD [Primary Care Provider] - Prescriptions: cephALEXin [Keflex] 500 mg PO TID #20 cap Naproxen 500 mg PO BID #20 tab Comments: Your CT scan does not show any obvious acute cause for your pain. You do have a small stone in the left kidney but up in the kidney and not being passed. There was evidence for old injury of the left kidney with some scarring that was present back in 2018 as well. They described possibly some small inflammation around the pancreas but you do not have pain in that location. At this point there is no clear cause of the pain based on the CT scan. Your urine test shows some white cells clumped as well as some bacteria. Its not positively convincing for bladder infection but suggestive and would correlate with your area of discomfort. Use cephalexin antibiotic as prescribed and also add naproxen anti-inflammatory twice daily with food for the next several days to week. Stay well-hydrated. Tylenol every 4-6 hours as needed for pain as well. We did send you home with some other stronger pain medicine to take tonight and tomorrow if needed. Hopefully this would not be needed beyond the few tablets of that. I sent your prescriptions to [facility] in [place]. Recheck if not improved well over the next several days and resolved by 3 to 4 days. Return if worse. Forms: PCP List Discharge Date/Time: 09/10/23 19:24
[2023-09-10] MEDS ORDERED: ACETAMINOPHEN 325 MG TABLET PO STA (17:41)
[2023-09-10] MEDS ORDERED: IBUPROFEN 800 MG TABLET PO STA (17:41)
[2023-09-10] MEDS ORDERED: oxyCODONE/ACET 5/325 Prepack 4 PO STA (17:41)
[2023-09-10 17:43] LABS: GLUCOSE, URINE (UA) NEGATIVE (NEGATIVE); KETONES,URINE (UA) NEGATIVE (NEGATIVE); LEUKOCYTE ESTERASE, URINE NEGATIVE (NEGATIVE); NITRITE,URINE NEGATIVE (NEGATIVE); OCCULT BLOOD,URINE TRACE-INTA (NEGATIVE); PH,URINE 5.5 PH (5.0-7.5); PROTEIN,URINE >=300 mg/dL (NEGATIVE); UROBILINOGEN,URINE 0.2 (NORMAL) E.U./dL (NORMAL)
[2023-09-10 18:07] LABS: BILIRUBIN,URINE NEGATIVE (NEGATIVE); ICTOTEST,URINE NEGATIVE
[2023-09-10 18:08] LABS: CLARITY,URINE HAZY (CLEAR)
[2023-09-10 18:09] LABS: AMORPHOUS SEDIMENT,UR Few /LPF; BACTERIA,URINE Few /HPF (None Seen); RBC,URINE 0-5 /HPF (0-5); SQUAMOUS EPITHELIAL CELL,UR FEW Squamous (<= Few); WBC,URINE 0-3 /HPF (0-3)
[2023-09-10 18:10] LABS: CASTS, URINE 3-5 Hyaline Casts /LPF
--- NOTE | 2023-09-10 18:33 | CT Report ---
PROCEDURE: ABDOMEN/PELVIS WO INDICATIONS: lower abd to right pain, h/o kidney stones in past TECHNIQUE: A CT scan of the abdomen and pelvis was performed without the use of intravenous contrast. Images we re recorded and evaluated at appropriate window settings. Reformats: coronal and sagittal. For radiat ion dose reduction, the following was used: automated exposure control, adjustment of mA and/or kV ac cording to patient size. COMPARISON: None. FINDINGS: Image quality: Excellent. Lung bases and heart: Unremarkable. Liver: No solid mass. Gallbladder and biliary tree: No radiopaque stones or wall thickening. No biliary dilation. Spleen: No splenomegaly. Pancreas: Hazy inflammatory changes within the fat surrounding the head of the pancreas.. Adrenals: No adrenal nodule. Kidneys and ureters: 5 mm stone within the left hilar collecting system with a maximum density of 507 Hounsfield units. The right kidney is unremarkable. The left kidney is slightly altered morphology w hich may be posttraumatic given subcapsular hematoma seen on comparison CT June 2018 Bowel and peritoneum: No bowel distension. No pathologic free fluid. Lymph nodes: No central or retroperitoneal adenopathy. Vessels: No infrarenal aortic aneurysm. PELVIS Reproductive organs: Unremarkable. Bladder: No wall thickness, accounting for underdistention. Pelvic lymph nodes: No pelvic adenopathy by size criteria. Bones: No aggressive osseous abnormality. Other: No significant ventral or inguinal hernia. IMPRESSION: 1.Nonobstructive left renal stone measuring 5 mm. 2.Altered morphology of the left kidney may be posttraumatic however given the focal thickened appear ance consider dedicated CT kidney for mass evaluation. 3.Nonspecific inflammatory changes noted at the head of the pancreas. Correlate with laboratory value s. Reviewed by: Shawn Colvin MD on 09/10/2023 5:31 PM [place] Approved by: Shawn Colvin MD on 09/10/2023 5:31 PM [place] Station ID: [id number]
[2023-09-10] MEDS ORDERED: cephALEXin 250 MG CAPSULE PO STA (19:01)
== END 2023-09-10 19:24 | disposition home or self-care (01) ==
LOC: ED 15:53
DX: R10.31 Right lower quadrant pain (principal); R10.32 Left lower quadrant pain; I10 Essential (primary) hypertension; J44.9 Chronic obstructive pulmonary disease, unspecified; M16.0 Bilateral primary osteoarthritis of hip; I25.2 Old myocardial infarction; F17.200 Nicotine dependence, unspecified, uncomplicated; Z79.899 Other long term (current) drug therapy; Z79.82 Long term (current) use of aspirin; Z79.02 Long term (current) use of antithrombotics/antiplatelets
CPT/HCPCS: 74022; 74176; 81001; 99284; A9270; 81003; 87086

== ENCOUNTER 2024-03-08 13:04 | Outpatient (CLI) | payer MEDICARE, OTHER ==
--- NOTE | 2024-03-08 13:59 | SLEEP CARE CONSULTATION ---
Information from patient questionnaire entered by Avelino Arciniega. I have reviewed and concur with the information entered by Avelino Arciniega. This document represents the service I personally performed and the decisions made by me, Deysi Pretty ARNP. History of Present Illness Service Date and Time: 03/08/2024 1304 Previous diagnosis: Severe, Obstructive Sleep Apnea-Hypopnea Syndrome AHI: 51.6 (in 2018)(109.4 in 2001) Reason for follow up: annual (LAST SEEN 01/2023) Equipment type: CPAP (DOUGLAS Dreamstation, recertified; 02/2022 NEED MACHINE) Equipment obtained from: [facility] (getting supplies) Mask style: Nasal Mask brand: Respironics (Dreamwear) Backup mask available: No Last cushion change: long times Prior sleep studies: Yes Year and Where: 11/20/2001 - [facility], 12/30/2017 - [facility] HPI additional information: ARDEN OLSEN was diagnosed to have severe, AHI 51.6, obstructive sleep apnea- hypopnea syndrome and returned today for CPAP therapy annual follow-up. Sleep Study - Results Prior sleep studies: Yes Year and Where: 2001 - [facility], 2017 - [facility] CPAP Compliance Data - Data Reviewed with Patient Average duration of nightly device use: 8.3 hours Compliance rate %: 100 (30/30 days used) Current pressure setting (cmH2O): 7-10 Average residual AHI: 3.5 Subjective Patient concerns: reports: mask discomfort (need mask replacement), dry mouth, nose, throat (occasional). denies: aerophagia, air blowing in eyes, mask leak noise, condensation in mask/hose, nasal congestion, epistaxis Observed to snore while using device: No Current pressure setting perceived as: too high On therapy, patient: reports: sleeping better, awakening more refreshed, being more awake and alert during the day, more rested overall. denies: drowsiness while driving Initial [place] Sleepiness Scale score: 12 (in 2019) Current [place] Sleepiness Scale score: 6 (03/08/24) Allergies and Home Medications Known drug allergies: Yes (as listed) Drug allergies reviewed: Yes Home medication list reviewed: Yes (changes updated in EMR) Allergy and home medication list: Allergies losartan Adverse Reaction (Verified 03/07/24 08:25) Unknown Home Medications Medication Instructions Recorded Confirmed Last Taken Type hydroCHLOROthiazide [Microzide] 12.5 mg PO DAILY 06/23/13 03/08/24/05/06 History Hydrocodone/Acetaminophen 1 - 2 tab PO Q6H PRN #14 tablet 11/07/14 03/08/24 Unknown Rx [Hydrocodon-Acetaminophen 5-325] Clopidogrel [Plavix] See Rx Instructions .ROUTE .COMPLEX 02/20/18 03/08/24 Unknown History Gabapentin See Rx Instructions .ROUTE .COMPLEX 02/20/18 03/08/24 Unknown History Nitroglycerin [Nitrostat] See Rx Instructions .ROUTE .COMPLEX 02/20/18 03/08/24 Unknown History Pantoprazole [Protonix] See Rx Instructions .ROUTE .COMPLEX 02/20/18 03/08/24 Unknown History allopurinoL [Allopurinol] See Rx Instructions .ROUTE .COMPLEX 02/20/18 03/08/24 Unknown History traMADol [Ultram] See Rx Instructions .ROUTE .COMPLEX 02/20/18 03/08/24 Unknown History dexAMETHasone [Decadron] 4 mg PO DAILY #5 tablet 09/25/18 03/08/24 Unknown Rx Hydrocodone/Acetaminophen 1 - 2 each PO Q6H PRN #14 tablet 10/16/18 03/08/24 Unknown Rx [Hydrocodon-Acetaminophen 5-325] Naproxen 500 mg PO BID #20 tab 09/10/23 03/08/24 Unknown Rx Review of Systems Review of systems same as previous: Yes (NO CHANGE) Physical Exam Vital signs obtained and entered by: AVELINO Estevez MA Blood Pressure: 157/79 (LEFT ARM) Cuff size: long Heart Rate: 61 O2 Saturation: 98 Height: 5 ft 11 in Weight: 239 lb 6.4 oz Weight change since last visit: 4 lb gain Body Mass Index: 33.3 BMI Classification: Obese Impression and Plan 1. Obstructive Sleep Apnea-Hypopnea Syndrome, severe, with good treatment compliance and good apnea control. On CPAP therapy, the patient has better sleep quality and is more rested overall. He says he has not gotten many supplies lately but need an updated supply prescription. I will take care of that today. He is eligible for a replacement CPAP. The patients CPAP is over 5 years old and of reasonable use. Thus, the CPAP will be updated. A DWO prescription will be made. Compliance guidelines for new device and follow up discussed. Patient has significant improvement of their sleep apnea and is satisfied with current CPAP therapy. He travels with the [employer] and would like to get a travel CPAP to take when he is travelling. I explained that insurance will not pay for them but he may buy one on his own with a prescription. He voiced understanding. Patient denies problems with oral dryness, nasal congestion, epistaxis, skin irritation or aerophagia. Patient's apnea severity and rationale for treatment to reduce apnea, improve sleep quality and reduce cardiovascular and cerebrovascular events was reviewed. I also reviewed the benefit of consistent device use of CPAP for hypertension and gastric reflux. 2. Obesity, unspecified. Currently patients BMI is 33.3. Obesity increases the risk of apnea, CPAP pressure requirements and overall health risks especially cardiovascular and diabetes. Thus patient is advised to lose weight. * Continue auto CPAP pressure at 7-10 cmH2O * Travel CPAP * Update supply prescription * Notify me if snoring with mask or feeling that the pressure is too much or too little * Attempt to lose weight * Call this office if any problems using CPAP * Return for follow up in 12 months, or sooner if concerns arise Continue with device pressure at (cmH2O): 7-10 Counseling Topics: Weight loss health impact Prescriptions: Auto CPAP, Device supplies, Other (Travel CPAP) Follow up with Sleep Care in: 1 year Visit Type: In Office Time Spent with Patient (minutes): 24 Provider Statement: I spent 100% of the Face to Face Visit with the patient with greater than 50% spent counseling the patient and coordination of care.
[2024-03-08 14:03] VITALS: BP 157/79; O2SAT 98
== END 2024-03-08 13:05 | disposition home or self-care (01) ==
LOC: SC 13:04
PROVIDERS: ATTEND Nurse Practitioner Family
DX: G47.33 Obstructive sleep apnea (adult) (pediatric) (principal); E66.9 Obesity, unspecified; Z68.33 Body mass index [BMI] 33.0-33.9, adult
CPT/HCPCS: 99213; G0463; 99212